=== PATIENT | male | born 1950 | race Caucasian/White ===

== ENCOUNTER → 2018-02-15 | Outpatient (CLI) | payer MEDICARE, OTHER ==
[~2018-02-15] MED LIST: ASPIRIN E.C. 8181 MG PO; CRESTOR 10MG10 MG PO; GLUCOPHAGE XR500 M1 PO; JANUVIA 100MG100 MG PO; LOPRESSOR100 MG PO; MULTIPLE VITAMI1 CAP PO; PRINZIDE 12.5 M1 TA1 PO
== END ==
LOC: COL.VAS 12:15
DX: M79.89 Other specified soft tissue disorders (principal)

== ENCOUNTER → 2019-04-09 | Outpatient (CLI) | payer MEDICARE, OTHER | LOC: COL.VAS 04-07 12:45 | DX: R01.1 Cardiac murmur, unspecified (principal) ==

== ENCOUNTER 2020-04-06 07:00 | Day surgery (SDC) | payer MEDICARE, OTHER ==
[2020-04-06] VITALS (223 sets, daily range): BP systolic 131–177; BP diastolic 67–85; PULSE 60–81; TEMP 97.2–98; O2SAT 93–98
[~2020-04-06] VITALS: Ht 167.7 cm; Wt 131.6 kg
[~2020-04-06 07:00] MED LIST changes: +COMPLETE SENIOR1 TA1 PO; -MULTIPLE VITAMI1 CAP PO; +PRINIVIL20 MG PO; -PRINZIDE 12.5 M1 TA1 PO
[2020-04-06 08:00] LABS: HEMATOCRIT 47.8 % (42.0-52.0); MEAN CELL VOLUME 93 fl (80.0-100.0); MEAN CORPUSCULAR HEMOGLOBIN 31 pg (27.0-31.0); MEAN CORPUSCULAR HGB CONC 34 g/dl (33.0-37.0); MEAN PLATELET VOLUME 10.8 fl (7.4-10.4); PLATELET COUNT 151 K/mm3 (130-400); RED BLOOD COUNT 5.12 M/mm3 (4.20-5.60); REDCELL DISTRIBUTION WIDTH-CV 12.5 % (11.5-14.5)
[2020-04-06 08:03] LABS: PROTHROMBIN TIME 11.7 SECONDS (9.7-12.8)
[2020-04-06 08:09] LABS: CALCIUM 9.2 mg/dL (8.4-10.2); CREATININE, serum 1.02 (0.66-1.25); POTASSIUM 4.5 mmol/L (3.4-5.0)
[2020-04-06] MEDS ORDERED: TRESIBA FL200 UNIT/1 SQ (08:28)
[2020-04-06] MEDS ORDERED: JARDIANCE25 PO (08:29)
[2020-04-06] MEDS ORDERED: GAVISCON 80 MG-1 CT1 PO (08:30)
--- NOTE | 2020-04-06 09:16 | NUR ---
SEE MERGE FOR ALL MEDICATION ADMINISTRATION TIMES AND ANESTHESIA RECORD. SEE MERGE FOR INTRA AND POST SEDATION ASSESSMENTS
--- NOTE | 2020-04-06 10:45 | NUR ---
Patient arrives to ICU 3 at this time. right radial TR band in place with 13 cc air. VS WNL, nitro gtt infusing at 5 mcg/min.
--- NOTE | 2020-04-06 10:48 | NUR ---
Report received pt transferred to ICU #3.
--- NOTE | 2020-04-06 13:30 | NUR ---
Dr. Mix comes to room at this time to inform patient of transfer to [facility] in [place] for PCI. Jen, warehouse shipping receiving clerk aware of transfer, awaiting bed assignment.
--- NOTE | 2020-04-06 15:04 | NUR ---
Patient leaves for [facility] in [place] with [facility] at this time. Report called to nurse on 7th floor.
== END 2020-04-06 15:18 | disposition short-term general hospital (02) ==
LOC: COL.CAR 07:00 → ICU 11:12 → COL.CAR 15:18
PROVIDERS: Internal Medicine Cardiovascular Disease
DX: I25.10 Atherosclerotic heart disease of native coronary artery without angina pectoris (principal); I08.0 Rheumatic disorders of both mitral and aortic valves; E78.2 Mixed hyperlipidemia; E11.9 Type 2 diabetes mellitus without complications; I10 Essential (primary) hypertension; E66.01 Morbid (severe) obesity due to excess calories; Z79.82 Long term (current) use of aspirin; Z79.84 Long term (current) use of oral hypoglycemic drugs
CPT/HCPCS: J1644; J2250; J2704; J3010; Q9967

== ENCOUNTER 2020-05-17 13:59 | Outpatient (RCR) | payer MEDICARE, OTHER ==
[~2020-05-17 13:59] MED LIST changes: +GAVISCON 80 MG-1 CT1 PO; +JARDIANCE25 PO; +TRESIBA FL200 UNIT/1 SQ
[2020-10-02] MEDS ORDERED: COREG 6.256.25 MG/TA PO (22:38)
[2020-10-02] MEDS ORDERED: PROTONIX 40MG T40 MG PO (22:38)
[2020-10-02] MEDS ORDERED: CORDARONE200 MG/TAB PO (22:51)
[2020-10-02] MEDS ORDERED: PLAVIX 75MG TAB75 MG PO (22:51)
[2020-10-02] MEDS ORDERED: JARDIANCE25 PO (22:51)
[2020-10-02] MEDS ORDERED: LASIX 40MG TABL40 MG PO (22:52)
[2020-10-02] MEDS ORDERED: HUMALOG PEN100 U/ML SQ (22:52)
[2020-10-02] MEDS ORDERED: PROSCAR 5MG5 MG PO (22:52)
[2020-10-02] MEDS ORDERED: CRESTOR40 MG PO (22:53)
[2020-10-02] MEDS ORDERED: MIRALAX PA17 GM/Dose PO (22:53)
[2020-10-02] MEDS ORDERED: SENOKOT S 50 MG1 TAB PO (22:54)
[2020-10-02] MEDS ORDERED: TRESIBA FL200 UNIT/1 SQ (22:54)
[2020-10-03] MEDS ORDERED: COZAAR 25MG25 MG/TAB PO (00:56)
[2020-10-08] MEDS ORDERED: DIFLUCAN 100MG100 MG PO (16:14)
[2020-10-08] MEDS ORDERED: OMNICEF 300MG300 MG PO (16:16)
[2020-10-08] MEDS ORDERED: COREG 3.123.125 MG/T PO (16:18)
== END 2020-07-15 | disposition home or self-care (01) ==
LOC: COL.CR
DX: Z48.812 Encounter for surgical aftercare following surgery on the circulatory system (principal); Z95.5 Presence of coronary angioplasty implant and graft

== ENCOUNTER → 2020-08-03 | Outpatient (CLI) | payer MEDICARE, OTHER ==
[~2020-08-03] MED LIST changes: +BRILINTA90 MG PO; +CORDARONE200 MG/TAB PO; +COREG 25MG25 MG/TAB PO; +COREG 3.123.125 MG/T PO; +COREG 6.256.25 MG/TA PO; +COZAAR 25MG25 MG/TAB PO; +CRESTOR40 MG PO; +DIFLUCAN 100MG100 MG PO; +ERAXIS100 MG IV; +HUMALOG PEN100 U/ML SQ; +JARDIANCE25; +LASIX 20MG TABL20 MG PO; +LASIX 40MG TABL40 MG PO; +LIPITOR 80MG80 MG PO; +MIRALAX PA17 GM/Dose PO; +NITROSTAT0.4 MG/TAB SL; +OMNICEF 300MG300 MG PO; +PLAVIX 75MG TAB75 MG PO; +PROSCAR 5MG5 MG PO; +PROTONIX 40MG T40 MG PO; +RANEXA 500MG T500 MG PO; +SENOKOT S 50 MG1 TAB PO
== END ==
LOC: COL.RAD 09:39
DX: R07.89 Other chest pain (principal)
CPT/HCPCS: A9503

== ENCOUNTER → 2020-08-13 | Outpatient (CLI) | payer MEDICARE, OTHER ==
[2020-08-13 14:57] LABS: CALCIUM 9.4 mg/dL (8.4-10.2); CREATININE, serum 0.96 (0.66-1.25); POTASSIUM 4.7 mmol/L (3.4-5.0)
== END ==
LOC: ZCOL.LAB 10:19
PROVIDERS: Family Medicine
DX: H05.89 Other disorders of orbit (principal)

== ENCOUNTER 2020-09-03 06:54 | Day surgery (SDC) | payer MEDICARE, OTHER ==
[~2020-09-03] VITALS: Ht 167.6 cm; Wt 126.9 kg
[~2020-09-03 06:54] MED LIST changes: -BRILINTA90 MG PO; -CORDARONE200 MG/TAB PO; -COREG 25MG25 MG/TAB PO; -COREG 3.123.125 MG/T PO; -COREG 6.256.25 MG/TA PO; -COZAAR 25MG25 MG/TAB PO; -CRESTOR40 MG PO; -DIFLUCAN 100MG100 MG PO; -ERAXIS100 MG IV; -HUMALOG PEN100 U/ML SQ; -JARDIANCE25; -LASIX 20MG TABL20 MG PO; -LASIX 40MG TABL40 MG PO; -LIPITOR 80MG80 MG PO; -MIRALAX PA17 GM/Dose PO; -NITROSTAT0.4 MG/TAB SL; -OMNICEF 300MG300 MG PO; -PLAVIX 75MG TAB75 MG PO; -PROSCAR 5MG5 MG PO; -PROTONIX 40MG T40 MG PO; -RANEXA 500MG T500 MG PO; -SENOKOT S 50 MG1 TAB PO
[2020-09-03] MEDS ORDERED: JARDIANCE25 (07:49)
[2020-09-03] MEDS ORDERED: PROTONIX 40MG T40 MG PO (07:50)
[2020-09-03] MEDS ORDERED: COREG 25MG25 MG/TAB PO (07:51)
[2020-09-03] MEDS ORDERED: BRILINTA90 MG PO (07:51)
[2020-09-03] MEDS ORDERED: LIPITOR 80MG80 MG PO (07:52)
[2020-09-03] MEDS ORDERED: NITROSTAT0.4 MG/TAB SL (07:53)
[2020-09-03 07:56] VITALS: BP 95/49; PULSE 72; TEMP 96.4
[2020-09-03 09:00] VITALS: BP 116/59; PULSE 71; TEMP 97.6
--- NOTE | 2020-09-03 09:00 | NUR ---
PATIENT RETURNS FROM ENDO PROCEDURE VIA CART. PATIENT AMBULATED FROM CART TO RECLINER WITH RN ASSISTANCE. MONITORS ON AND ALARMS SET. CALL LIGHT WITHIN REACH. FAMILY MEMBER PROESENT IN ROOM. PATIENT ALERT AND ORIENTED X3, REPORT RECEIVED FROM JODI LOMBARDO. HOLDING FOOD AND FLUIDS UNTIL PATIENT IS SEEN BY DR HOLLINGSWORTH. DENIES NAUSEA. CHEST DISCOMFORT NOTED BUT LESS THAN BEFORE MORPHINE. BLOOD SUGAR 143 FINGER STICK.
[2020-09-03 09:15] VITALS: BP 113/48; PULSE 74
--- NOTE | 2020-09-03 09:15 | NUR ---
DR HOLLINGSWORTH EXPLAINED PROCEDURE AND PLAN OF CARE, PATIENT VOICED UNDERSTANDING OF PLAN OF CARE, DENIES CHEST PAIN. SPOUSE REMAINS IN THE ROOM, CAPSULE SWALLOW PLANNED WILL PATIENT IS HERE.
[2020-09-03 09:30] VITALS: BP 128/60; PULSE 70
--- NOTE | 2020-09-03 10:30 | NUR ---
DISCHARGE INSTRUCTIONS REVIEWED AND QUESTIONS ANSWERED, NPO UNTIL NOON THAN CLEAR LIQUIDS, 4 HOURS MAY EAT REGULAR DIET, MONITOR ON TO RECORD GI CAPSULE. TAKEN BY WHEELCHAIR TO CAR ACCOMPANIED BY SPOUSE.
[2020-10-02] MEDS ORDERED: PROTONIX 40MG T40 MG PO (22:38)
[2020-10-02] MEDS ORDERED: COREG 6.256.25 MG/TA PO (22:38)
[2020-10-02] MEDS ORDERED: JARDIANCE25 PO (22:51)
[2020-10-02] MEDS ORDERED: PLAVIX 75MG TAB75 MG PO (22:51)
[2020-10-02] MEDS ORDERED: CORDARONE200 MG/TAB PO (22:51)
[2020-10-02] MEDS ORDERED: LASIX 40MG TABL40 MG PO (22:52)
[2020-10-02] MEDS ORDERED: HUMALOG PEN100 U/ML SQ (22:52)
[2020-10-02] MEDS ORDERED: PROSCAR 5MG5 MG PO (22:52)
[2020-10-02] MEDS ORDERED: CRESTOR40 MG PO (22:53)
[2020-10-02] MEDS ORDERED: MIRALAX PA17 GM/Dose PO (22:53)
[2020-10-02] MEDS ORDERED: SENOKOT S 50 MG1 TAB PO (22:54)
[2020-10-02] MEDS ORDERED: TRESIBA FL200 UNIT/1 SQ (22:54)
[2020-10-03] MEDS ORDERED: COZAAR 25MG25 MG/TAB PO (00:56)
[2020-10-08] MEDS ORDERED: DIFLUCAN 100MG100 MG PO (16:14)
[2020-10-08] MEDS ORDERED: OMNICEF 300MG300 MG PO (16:16)
[2020-10-08] MEDS ORDERED: COREG 3.123.125 MG/T PO (16:18)
== END 2020-09-03 10:30 | disposition home or self-care (01) ==
LOC: SDCO 06:54
DX: D50.0 Iron deficiency anemia secondary to blood loss (chronic) (principal); K31.89 Other diseases of stomach and duodenum; K92.1 Melena; D12.2 Benign neoplasm of ascending colon; K57.30 Diverticulosis of large intestine without perforation or abscess without bleeding; E11.9 Type 2 diabetes mellitus without complications; K64.1 Second degree hemorrhoids; I10 Essential (primary) hypertension; E78.2 Mixed hyperlipidemia; E66.01 Morbid (severe) obesity due to excess calories; I25.10 Atherosclerotic heart disease of native coronary artery without angina pectoris; Z79.899 Other long term (current) drug therapy; Z79.4 Long term (current) use of insulin; Z95.2 Presence of prosthetic heart valve; Z79.02 Long term (current) use of antithrombotics/antiplatelets; Z79.82 Long term (current) use of aspirin; Z68.41 Body mass index [BMI] 40.0-44.9, adult; Z95.818 Presence of other cardiac implants and grafts
CPT/HCPCS: J2270; J2370; J2704

== ENCOUNTER 2020-09-07 04:00 | Emergency (ER) | payer MEDICARE, OTHER ==
[~2020-09-07] VITALS: Ht 170.2 cm; Wt 127.3 kg
[~2020-09-07 04:00] MED LIST changes: +BRILINTA90 MG PO; +COREG 25MG25 MG/TAB PO; +JARDIANCE25; +LIPITOR 80MG80 MG PO; +NITROSTAT0.4 MG/TAB SL; +PROTONIX 40MG T40 MG PO
[2020-09-07 04:23] LABS: BASO % 0.3 % (0.0-2.0); EOS # 0.1 (0.0-0.7); EOS % 1.4 % (0-4.0); GRAN # 6.8 (1.4-6.5); GRAN % 76.8 % (42.2-75.2); LYMPH # 1.2 (1.2-3.4); LYMPH % 13.4 % (20.0-51.0); MEAN CELL VOLUME 98 fl (80.0-100.0); MEAN CORPUSCULAR HGB CONC 32 g/dl (33.0-37.0); MEAN PLATELET VOLUME 10.4 fl (7.4-10.4); MONO # 0.6 (0.1-0.6); MONO % 7.2 % (1.7-9.3); PLATELET COUNT 189 K/mm3 (130-400); RED BLOOD COUNT 2.53 M/mm3 (4.20-5.60); REDCELL DISTRIBUTION WIDTH-CV 14.6 % (11.5-14.5)
[2020-09-07 04:24] LABS: HEMATOCRIT 24.8 % (42.0-52.0); HEMOGLOBIN 7.9 g/dl (13.5-18.0); MEAN CORPUSCULAR HEMOGLOBIN 31 pg (27.0-31.0)
[2020-09-07 04:25] LABS: INR 1.1 (0.8-3.0); PROTHROMBIN TIME 12.4 SECONDS (9.7-12.8)
[2020-09-07 04:29] LABS: ALBUMIN 3.2 gm/dL (3.5-5.0); BILIRUBIN,TOTAL 0.5 mg/dL (0.0-1.0); CALCIUM 8.9 mg/dL (8.4-10.2); CREATININE, serum 1.26 (0.66-1.25); POTASSIUM 4.6 mmol/L (3.4-5.0); TOTAL PROTEIN 5.7 gm/dL (6.4-8.2)
[2020-09-07 04:42] LABS: TROPONIN-I 0.584 ng/mL (0.000-0.035)
[2020-09-07 05:30] VITALS: BP 108/56; PULSE 63; TEMP 97.7
[2020-09-07 06:00] VITALS: BP 113/63; PULSE 74; TEMP 97.4
[2020-09-07 06:48] VITALS: BP 147/87; PULSE 87; TEMP 97.5
[2020-09-07 07:25] VITALS: BP 148/82; PULSE 87; TEMP 97.4
[2020-09-07 10:15] VITALS: BP 97/63; PULSE 89
[2020-10-02] MEDS ORDERED: PROTONIX 40MG T40 MG PO (22:38)
[2020-10-02] MEDS ORDERED: COREG 6.256.25 MG/TA PO (22:38)
[2020-10-02] MEDS ORDERED: CORDARONE200 MG/TAB PO (22:51)
[2020-10-02] MEDS ORDERED: PLAVIX 75MG TAB75 MG PO (22:51)
[2020-10-02] MEDS ORDERED: JARDIANCE25 PO (22:51)
[2020-10-02] MEDS ORDERED: PROSCAR 5MG5 MG PO (22:52)
[2020-10-02] MEDS ORDERED: LASIX 40MG TABL40 MG PO (22:52)
[2020-10-02] MEDS ORDERED: HUMALOG PEN100 U/ML SQ (22:52)
[2020-10-02] MEDS ORDERED: MIRALAX PA17 GM/Dose PO (22:53)
[2020-10-02] MEDS ORDERED: CRESTOR40 MG PO (22:53)
[2020-10-02] MEDS ORDERED: SENOKOT S 50 MG1 TAB PO (22:54)
[2020-10-02] MEDS ORDERED: TRESIBA FL200 UNIT/1 SQ (22:54)
[2020-10-03] MEDS ORDERED: COZAAR 25MG25 MG/TAB PO (00:56)
[2020-10-08] MEDS ORDERED: DIFLUCAN 100MG100 MG PO (16:14)
[2020-10-08] MEDS ORDERED: OMNICEF 300MG300 MG PO (16:16)
[2020-10-08] MEDS ORDERED: COREG 3.123.125 MG/T PO (16:18)
== END 2020-09-07 10:15 | disposition short-term general hospital (02) ==
LOC: COL.ER 04:00
PROVIDERS: Personal Emergency Response Attendant
DX: Q23.1 Congenital insufficiency of aortic valve (principal); I25.700 Atherosclerosis of coronary artery bypass graft(s), unspecified, with unstable angina pectoris; K92.2 Gastrointestinal hemorrhage, unspecified; E11.9 Type 2 diabetes mellitus without complications; Z95.1 Presence of aortocoronary bypass graft
CPT/HCPCS: C9113; J1940; J2405; J2704; J3010; P9016

== ENCOUNTER 2020-09-19 20:38 | Emergency (ER) | payer MEDICARE, OTHER ==
[~2020-09-19] VITALS: Ht 170.2 cm; Wt 119.5 kg
[2020-09-19 20:40] VITALS: TEMP 99.3
[2020-09-19 21:07] LABS: INR 1.4 (0.8-3.0); PROTHROMBIN TIME 15.7 SECONDS (9.7-12.8)
[2020-09-19 21:11] LABS: BASO % 0.3 % (0.0-2.0); GRAN # 7.5 (1.4-6.5); GRAN % 94.3 % (42.2-75.2); LYMPH # 0.2 (1.2-3.4); LYMPH % 2.5 % (20.0-51.0); MEAN CELL VOLUME 96 fl (80.0-100.0); MEAN CORPUSCULAR HGB CONC 30 g/dl (33.0-37.0); MONO # 0.1 (0.1-0.6); MONO % 1.5 % (1.7-9.3); PLATELET COUNT 184 K/mm3 (130-400); RED BLOOD COUNT 2.69 M/mm3 (4.20-5.60); REDCELL DISTRIBUTION WIDTH-CV 16.1 % (11.5-14.5)
[2020-09-19 21:12] LABS: HEMATOCRIT 25.7 % (42.0-52.0); HEMOGLOBIN 7.7 g/dl (13.5-18.0); MEAN CORPUSCULAR HEMOGLOBIN 29 pg (27.0-31.0)
[2020-09-19 21:13] LABS: BILIRUBIN,TOTAL 1.5 mg/dL (0.0-1.0); CALCIUM 8.2 mg/dL (8.4-10.2); CREATININE, serum 3.08 (0.66-1.25); POTASSIUM 4.7 mmol/L (3.4-5.0); TOTAL PROTEIN 5.9 gm/dL (6.4-8.2)
[2020-09-19 21:29] LABS: TROPONIN-I 0.659 ng/mL (0.000-0.035)
[2020-09-19 22:42] LABS: COLLECTION METHOD CLEAN CATCH
[2020-09-19 23:02] LABS: BUDDING YEAST Present /hpf; MUCOUS Present /lpf; PH 5 (5-8); SQUAMOUS EPITHELIAL 0-2 /hpf; URINE APPEARANCE Cloudy; URINE BACTERIA None Seen /hpf; URINE BILIRUBIN Negative (NEGATIVE); URINE BLOOD 1+ (NEGATIVE); URINE COLOR Yellow; URINE GLUCOSE 3+ (NEGATIVE); URINE KETONE Negative (NEGATIVE); URINE LEUKOCYTE ESTERASE Negative (NEGATIVE); URINE NITRATE Negative (NEGATIVE); URINE PROTEIN(semi-quant) Negative (NEGATIVE); URINE RBC 0-2 /hpf; URINE UROBILINOGEN Negative (NEGATIVE)
[2020-09-19 23:15] VITALS: BP 115/51; PULSE 68
[2020-10-02] MEDS ORDERED: COREG 6.256.25 MG/TA PO (22:38)
[2020-10-02] MEDS ORDERED: PROTONIX 40MG T40 MG PO (22:38)
[2020-10-02] MEDS ORDERED: PLAVIX 75MG TAB75 MG PO (22:51)
[2020-10-02] MEDS ORDERED: JARDIANCE25 PO (22:51)
[2020-10-02] MEDS ORDERED: CORDARONE200 MG/TAB PO (22:51)
[2020-10-02] MEDS ORDERED: LASIX 40MG TABL40 MG PO (22:52)
[2020-10-02] MEDS ORDERED: HUMALOG PEN100 U/ML SQ (22:52)
[2020-10-02] MEDS ORDERED: PROSCAR 5MG5 MG PO (22:52)
[2020-10-02] MEDS ORDERED: MIRALAX PA17 GM/Dose PO (22:53)
[2020-10-02] MEDS ORDERED: CRESTOR40 MG PO (22:53)
[2020-10-02] MEDS ORDERED: SENOKOT S 50 MG1 TAB PO (22:54)
[2020-10-02] MEDS ORDERED: TRESIBA FL200 UNIT/1 SQ (22:54)
[2020-10-03] MEDS ORDERED: COZAAR 25MG25 MG/TAB PO (00:56)
[2020-10-08] MEDS ORDERED: DIFLUCAN 100MG100 MG PO (16:14)
[2020-10-08] MEDS ORDERED: OMNICEF 300MG300 MG PO (16:16)
[2020-10-08] MEDS ORDERED: COREG 3.123.125 MG/T PO (16:18)
== END 2020-09-19 23:15 ==
LOC: COL.ER 20:38
PROVIDERS: Emergency Medicine
DX: K92.2 Gastrointestinal hemorrhage, unspecified (principal); I20.0 Unstable angina; Z95.1 Presence of aortocoronary bypass graft; I35.0 Nonrheumatic aortic (valve) stenosis; E11.9 Type 2 diabetes mellitus without complications; Z79.82 Long term (current) use of aspirin; Z79.899 Other long term (current) drug therapy; Z79.4 Long term (current) use of insulin
CPT/HCPCS: J7030; J7060

== ENCOUNTER 2020-10-01 17:00 | Emergency (ER) | payer MEDICARE, OTHER ==
[~2020-10-01] VITALS: Ht 170.2 cm; Wt 119.1 kg
[2020-10-01 18:25] VITALS: BP 116/52; PULSE 63; TEMP 98
[2020-10-02] MEDS ORDERED: PROTONIX 40MG T40 MG PO (22:38)
[2020-10-02] MEDS ORDERED: COREG 6.256.25 MG/TA PO (22:38)
[2020-10-02] MEDS ORDERED: PLAVIX 75MG TAB75 MG PO (22:51)
[2020-10-02] MEDS ORDERED: JARDIANCE25 PO (22:51)
[2020-10-02] MEDS ORDERED: CORDARONE200 MG/TAB PO (22:51)
[2020-10-02] MEDS ORDERED: PROSCAR 5MG5 MG PO (22:52)
[2020-10-02] MEDS ORDERED: HUMALOG PEN100 U/ML SQ (22:52)
[2020-10-02] MEDS ORDERED: LASIX 40MG TABL40 MG PO (22:52)
[2020-10-02] MEDS ORDERED: MIRALAX PA17 GM/Dose PO (22:53)
[2020-10-02] MEDS ORDERED: CRESTOR40 MG PO (22:53)
[2020-10-02] MEDS ORDERED: TRESIBA FL200 UNIT/1 SQ (22:54)
[2020-10-02] MEDS ORDERED: SENOKOT S 50 MG1 TAB PO (22:54)
[2020-10-03] MEDS ORDERED: COZAAR 25MG25 MG/TAB PO (00:56)
[2020-10-08] MEDS ORDERED: DIFLUCAN 100MG100 MG PO (16:14)
[2020-10-08] MEDS ORDERED: OMNICEF 300MG300 MG PO (16:16)
[2020-10-08] MEDS ORDERED: COREG 3.123.125 MG/T PO (16:18)
== END 2020-10-01 18:25 | disposition home or self-care (01) ==
LOC: COL.ER 17:00
DX: R04.0 Epistaxis (principal); I25.2 Old myocardial infarction; Z79.01 Long term (current) use of anticoagulants; Z79.82 Long term (current) use of aspirin; Z79.02 Long term (current) use of antithrombotics/antiplatelets; Z95.1 Presence of aortocoronary bypass graft

== ENCOUNTER 2020-10-15 17:51 | Emergency (ER) | payer MEDICARE, OTHER ==
[~2020-10-15] VITALS: Ht 170.2 cm; Wt 122.3 kg
[~2020-10-15 17:51] MED LIST changes: +CORDARONE200 MG/TAB PO; +COREG 3.123.125 MG/T PO; +COREG 6.256.25 MG/TA PO; +COZAAR 25MG25 MG/TAB PO; +CRESTOR40 MG PO; +DIFLUCAN 100MG100 MG PO; +HUMALOG PEN100 U/ML SQ; +LASIX 40MG TABL40 MG PO; +MIRALAX PA17 GM/Dose PO; +OMNICEF 300MG300 MG PO; +PLAVIX 75MG TAB75 MG PO; +PROSCAR 5MG5 MG PO; +SENOKOT S 50 MG1 TAB PO
[2020-10-15 18:02] VITALS: TEMP 98
[2020-10-15 19:18] LABS: BASO % 0.6 % (0.0-2.0); EOS # 0.1 (0.0-0.7); GRAN # 4.3 (1.4-6.5); GRAN % 64.4 % (42.2-75.2); LYMPH # 1.7 (1.2-3.4); LYMPH % 25.3 % (20.0-51.0); MEAN CELL VOLUME 96 fl (80.0-100.0); MEAN CORPUSCULAR HGB CONC 30 g/dl (33.0-37.0); MEAN PLATELET VOLUME 9.2 fl (7.4-10.4); MONO # 0.5 (0.1-0.6); MONO % 7.1 % (1.7-9.3); PLATELET COUNT 313 K/mm3 (130-400); RED BLOOD COUNT 3.01 M/mm3 (4.20-5.60); REDCELL DISTRIBUTION WIDTH-CV 17.3 % (11.5-14.5)
[2020-10-15 19:19] LABS: HEMATOCRIT 28.8 % (42.0-52.0); HEMOGLOBIN 8.5 g/dl (13.5-18.0); MEAN CORPUSCULAR HEMOGLOBIN 28 pg (27.0-31.0)
[2020-10-15 19:29] LABS: ALBUMIN 3.5 gm/dL (3.5-5.0); BILIRUBIN,TOTAL 0.5 mg/dL (0.0-1.0); CALCIUM 8.8 mg/dL (8.4-10.2); CREATININE, serum 1.66 (0.66-1.25); POTASSIUM 3.7 mmol/L (3.4-5.0); TOTAL PROTEIN 7.1 gm/dL (6.4-8.2)
[2020-10-15 19:54] VITALS: BP 160/89; PULSE 71
== END 2020-10-15 19:50 | disposition home or self-care (01) ==
LOC: COL.ER 17:51
PROVIDERS: Physician Assistant
DX: D64.9 Anemia, unspecified (principal); I25.2 Old myocardial infarction; Z79.01 Long term (current) use of anticoagulants

== ENCOUNTER → 2020-10-18 | Outpatient (CLI) | payer MEDICARE, OTHER ==
[~2020-10-18] MED LIST changes: +ERAXIS100 MG IV; +LASIX 20MG TABL20 MG PO; +RANEXA 500MG T500 MG PO
[2020-10-18 08:58] LABS: MEAN CELL VOLUME 95 fl (80.0-100.0); MEAN CORPUSCULAR HGB CONC 30 g/dl (33.0-37.0); MEAN PLATELET VOLUME 9.1 fl (7.4-10.4); PLATELET COUNT 293 K/mm3 (130-400); RED BLOOD COUNT 2.92 M/mm3 (4.20-5.60)
[2020-10-18 09:01] LABS: HEMATOCRIT 27.6 % (42.0-52.0); HEMOGLOBIN 8.3 g/dl (13.5-18.0); MEAN CORPUSCULAR HEMOGLOBIN 28 pg (27.0-31.0)
== END ==
LOC: COL.LAB 08:22
DX: D64.9 Anemia, unspecified (principal)

== ENCOUNTER → 2020-10-22 | Outpatient (CLI) | payer MEDICARE, OTHER ==
[2020-10-22 10:40] LABS: HEMATOCRIT 26.6 % (42.0-52.0); HEMOGLOBIN 8.2 g/dl (13.5-18.0)
== END ==
LOC: COL.LAB 10:03
PROVIDERS: Nurse Practitioner
DX: D64.9 Anemia, unspecified (principal)

== ENCOUNTER → 2020-11-11 | Outpatient (CLI) | payer MEDICARE, OTHER ==
[2020-11-11 09:53] LABS: IRON,SERUM 50 ug/dL (35-150)
[2020-11-11 09:55] LABS: MEAN CELL VOLUME 86 fl (80.0-100.0); MEAN CORPUSCULAR HGB CONC 32 g/dl (33.0-37.0); MEAN PLATELET VOLUME 10.9 fl (7.4-10.4); PLATELET COUNT 154 K/mm3 (130-400); RED BLOOD COUNT 3.28 M/mm3 (4.20-5.60); REDCELL DISTRIBUTION WIDTH-CV 15.3 % (11.5-14.5)
[2020-11-11 10:02] LABS: TOTAL IRON BINDING CAPACITY 398 ug/dL (261-462)
[2020-11-11 11:59] LABS: HEMATOCRIT 28.3 % (42.0-52.0); HEMOGLOBIN 9.1 g/dl (13.5-18.0); MEAN CORPUSCULAR HEMOGLOBIN 28 pg (27.0-31.0)
[2020-11-11 12:04] LABS: ANISOCYTOSIS 1+; EOSINOPHIL 3 % (0-4); LYMPHOCYTE 20 % (20.0-51.0); PLATELET ESTIMATE NORMAL (NORMAL)
[2020-11-11 12:05] LABS: BAND 4 % (0-10); NEUTROPHILS 63 % (42.0-75.2)
[2020-11-11 12:06] LABS: HYPOCHROMIA 1+
== END ==
LOC: COL.LAB 09:00
PROVIDERS: Nurse Practitioner
DX: D64.9 Anemia, unspecified (principal)

== ENCOUNTER 2020-12-01 06:43 | Inpatient (IN) | payer MEDICARE, OTHER ==
[~2020-12-01] VITALS: Ht 170.2 cm; Wt 119.6 kg
[2020-12-01] VITALS (10 sets, daily range): BP systolic 102–153; BP diastolic 36–89; PULSE 79–105; TEMP 98.1–99.2
[~2020-12-01 06:43] MED LIST changes: -ERAXIS100 MG IV; -LASIX 20MG TABL20 MG PO; -RANEXA 500MG T500 MG PO
[2020-12-01 07:08] LABS: BASO % 0.4 % (0.0-2.0); EOS % 0.7 % (0-4.0); GRAN # 4.6 (1.4-6.5); GRAN % 85.2 % (42.2-75.2); LYMPH # 0.4 (1.2-3.4); LYMPH % 7.4 % (20.0-51.0); MEAN CELL VOLUME 84 fl (80.0-100.0); MEAN CORPUSCULAR HGB CONC 30 g/dl (33.0-37.0); MEAN PLATELET VOLUME 10.1 fl (7.4-10.4); MONO # 0.3 (0.1-0.6); MONO % 5.9 % (1.7-9.3); PLATELET COUNT 210 K/mm3 (130-400); RED BLOOD COUNT 3.26 M/mm3 (4.20-5.60); REDCELL DISTRIBUTION WIDTH-CV 15.1 % (11.5-14.5)
[2020-12-01 07:18] LABS: INR 1.2 (0.8-3.0); PROTHROMBIN TIME 13.4 SECONDS (9.7-12.8)
[2020-12-01 07:21] LABS: PARTIAL THROMBOPLASTIN TIME 23.9 SECONDS (26.0-37.0)
[2020-12-01 07:28] LABS: ALBUMIN 3.1 gm/dL (3.4-4.8); BILIRUBIN,TOTAL 0.7 mg/dL (0.2-1.2); CALCIUM 8.9 mg/dL (8.4-10.2); CREATININE, serum 1.49 mg/dL (0.72-1.25); POTASSIUM 4.4 mmol/L (3.5-4.5)
[2020-12-01 07:34] LABS: TROPONIN-I 0.017 ng/mL (0.00-0.033)
[2020-12-01 08:04] LABS: HEMATOCRIT 27.4 % (42.0-52.0); HEMOGLOBIN 8.3 g/dl (13.5-18.0); MEAN CORPUSCULAR HEMOGLOBIN 25 pg (27.0-31.0)
--- NOTE | 2020-12-01 13:59 | NUR ---
PT ADMITTED TO ROOM 314 VIA CART ACCOMPANIED BY ER NURSE. PT ORIENTED TO ROON AND UNIT ROUTINES.
[2020-12-01] MEDS ORDERED: LASIX 20MG TABL20 MG PO ×2 (16:24→16:25)
[2020-12-01 17:37] LABS: COLLECTION METHOD CLEAN CATCH
[2020-12-01 18:09] LABS: BUDDING YEAST Present /hpf; PH 5 (5-8); SQUAMOUS EPITHELIAL None Seen /hpf; URINE APPEARANCE Hazy; URINE BACTERIA None Seen /hpf; URINE BILIRUBIN Negative (NEGATIVE); URINE BLOOD 1+ (NEGATIVE); URINE COLOR Yellow; URINE GLUCOSE 3+ (NEGATIVE); URINE KETONE Negative (NEGATIVE); URINE LEUKOCYTE ESTERASE Trace (NEGATIVE); URINE NITRATE Negative (NEGATIVE); URINE PROTEIN(semi-quant) 1+ (NEGATIVE); URINE UROBILINOGEN Negative (NEGATIVE)
--- NOTE | 2020-12-01 20:00 | NUR ---
Assessment complete. Patient is alert and oriented with no current complaints of chest pain. Lung sounds are clear and HR is normal/regular. Patient breathing RA. 1 unit blood currently infusing into left hand IV; patient tolerating trasnfusion well. No new concerns, will continue to monitor.
--- NOTE | 2020-12-01 21:45 | NUR ---
1 unit PRBC transfusion complete at this time. Patient tolerated procedure well with no s/s of adverse reaction. Vital signs stable.
[2020-12-02 00:13] VITALS: BP 137/55; PULSE 74; TEMP 98.3
[2020-12-02 03:59] VITALS: BP 129/59; PULSE 70; TEMP 98.1
--- NOTE | 2020-12-02 06:41 | NUR ---
Patient has had a restful, uneventful night. No complaints of chest pain or additional concerns. Has been NPO since midnight for heart cath today.
[2020-12-02 06:57] LABS: BASO % 0.9 % (0.0-2.0); EOS # 0.1 (0.0-0.7); GRAN # 1.9 (1.4-6.5); GRAN % 56.6 % (42.2-75.2); LYMPH # 0.9 (1.2-3.4); LYMPH % 27.1 % (20.0-51.0); MEAN CELL VOLUME 86 fl (80.0-100.0); MEAN CORPUSCULAR HGB CONC 30 g/dl (33.0-37.0); MONO # 0.4 (0.1-0.6); MONO % 12.8 % (1.7-9.3); PLATELET COUNT 201 K/mm3 (130-400); RED BLOOD COUNT 3.42 M/mm3 (4.20-5.60); REDCELL DISTRIBUTION WIDTH-CV 15.1 % (11.5-14.5)
[2020-12-02 06:59] LABS: HEMATOCRIT 29.3 % (42.0-52.0); HEMOGLOBIN 8.8 g/dl (13.5-18.0); MEAN CORPUSCULAR HEMOGLOBIN 26 pg (27.0-31.0)
[2020-12-02 07:28] LABS: CALCIUM 8.9 mg/dL (8.4-10.2); CREATININE, serum 1.34 mg/dL (0.72-1.25)
[2020-12-02 07:48] LABS: TROPONIN-I 0.21 ng/mL (0.00-0.033)
[2020-12-02 07:57] VITALS: BP 142/52; PULSE 77; TEMP 97.8
--- NOTE | 2020-12-02 09:12 | NUR ---
Patient laying in bed upon entering the room. Does not have any complaints this morning. Continues to refuse SQ heparin, as he has a hx of GI bleed. Patient stated he will only take it if he needs to have a cardiac cath done. Patient has been NPO since midnight, as night nurse was told he was to have a cardiac cath today. At this time there are no orders for one, and there are no notes stating that one would be completed.
[2020-12-02 11:44] VITALS: BP 127/58; PULSE 69; TEMP 98.1
--- NOTE | 2020-12-02 12:45 | NUR ---
HA met with patient and his , Matilda, to discuss discharge planning. Patient states he and his live in [place] where he is moderately independent. He does have a walker, shower chair, and their son is going to be installing a raised toilet seat. Their home only has one step to enter. Patient uses [facility] for his pharmacy needs and he has no difficulty obtaining or affording them. His PCP is Abner Coello and his is listed as his MPOA, which they state is on file. *D/C Planning: anticipated d/c home pending evals and testing
--- NOTE | 2020-12-02 13:40 | NUR ---
First visit from the brake operator heavy duty. No needs right now.
[2020-12-02 16:39] VITALS: BP 116/48; PULSE 69; TEMP 98
--- NOTE | 2020-12-02 18:20 | NUR ---
Patient has done well today and has not had any complaints. has been in the room all day. All questions answered.
--- NOTE | 2020-12-02 20:00 | NUR ---
Assessment complete. Patient is alert and oriented with no complaints of chest pain. Pt home meds are verified with his and medication education is provided on newly prescribed med, Ranexa. HR is normal/regular and lungs are clear. BLE non-pitting edema is noted with venous stasus discoloration, which is chronic for the patient. Patient breathing RA. He has been informed of NPO status at midnight for possible SASKIA in AM. Call light in reach.
[2020-12-02 21:39] VITALS: BP 127/49; PULSE 72; TEMP 97.8
[2020-12-03 04:04] VITALS: BP 133/51; PULSE 78; TEMP 97.6
[2020-12-03 06:03] LABS: BASO % 0.7 % (0.0-2.0); EOS # 0.1 (0.0-0.7); EOS % 4.3 % (0-4.0); GRAN # 1.5 (1.4-6.5); GRAN % 49.7 % (42.2-75.2); LYMPH # 0.9 (1.2-3.4); LYMPH % 30.2 % (20.0-51.0); MEAN CELL VOLUME 85 fl (80.0-100.0); MEAN CORPUSCULAR HGB CONC 30 g/dl (33.0-37.0); MEAN PLATELET VOLUME 11.2 fl (7.4-10.4); MONO # 0.5 (0.1-0.6); MONO % 14.8 % (1.7-9.3); PLATELET COUNT 151 K/mm3 (130-400); RED BLOOD COUNT 3.41 M/mm3 (4.20-5.60); REDCELL DISTRIBUTION WIDTH-CV 15.3 % (11.5-14.5)
[2020-12-03 06:04] LABS: HEMOGLOBIN 8.7 g/dl (13.5-18.0); MEAN CORPUSCULAR HEMOGLOBIN 26 pg (27.0-31.0)
[2020-12-03 06:25] LABS: CALCIUM 9.1 mg/dL (8.4-10.2); CREATININE, serum 1.43 mg/dL (0.72-1.25); POTASSIUM 4.1 mmol/L (3.5-4.5)
[2020-12-03 07:52] VITALS: BP 136/67; PULSE 68; TEMP 97.7
--- NOTE | 2020-12-03 08:00 | NUR ---
Sanam RUSH notified of emeli growth in blood cultures. Infectious disease consult ordered and notified at this time.
--- NOTE | 2020-12-03 08:45 | NUR ---
Shift assessment complete. Pt sitting up in recliner. Updated on plan for today including SASKIA, awaiting scheduled time from . Pt remains NPO. Lungs CTA. Heart RRR. Afebrile, VSS. Denies needs at this time. Continuing to monitor.
[2020-12-03 11:30] VITALS: BP 149/59; PULSE 80; TEMP 97.8
--- NOTE | 2020-12-03 11:50 | NUR ---
Pt off unit for SASKIA at this time.
--- NOTE | 2020-12-03 13:00 | NUR ---
procedure completed and recovery, pt to 314 via w/c from . report to Kisha RN floor nurse, pt transfers self to bed, in room
[2020-12-03 14:20] VITALS: BP 132/53; PULSE 67; TEMP 97.8
[2020-12-03 16:20] VITALS: BP 133/49; PULSE 76; TEMP 98
--- NOTE | 2020-12-03 20:00 | NUR ---
Assessment complete. Patient alert and oriented with no complaints of pain. He expresses interest in being able to discharge tomorrow and receive outpatient antifungal treatment if possible. Comfort measures provided; call light within reach.
[2020-12-03 20:23] VITALS: BP 132/54; PULSE 74; TEMP 98
[2020-12-04 00:14] VITALS: BP 118/48; PULSE 71; TEMP 97.9
[2020-12-04 04:42] VITALS: BP 141/64; PULSE 72; TEMP 98.4
--- NOTE | 2020-12-04 06:59 | NUR ---
Bedside shift report complete. Report received from MUNIRA Cifuentes. Pt. sitting up in bed, awake. Pt. denies further needs at this time, call light and belongings in reach.
[2020-12-04 07:09] LABS: BASO % 0.8 % (0.0-2.0); EOS # 0.1 (0.0-0.7); EOS % 2.6 % (0-4.0); GRAN # 2.3 (1.4-6.5); GRAN % 59.6 % (42.2-75.2); LYMPH % 26.3 % (20.0-51.0); MEAN CELL VOLUME 86 fl (80.0-100.0); MEAN CORPUSCULAR HGB CONC 30 g/dl (33.0-37.0); MEAN PLATELET VOLUME 10.8 fl (7.4-10.4); MONO # 0.4 (0.1-0.6); MONO % 10.4 % (1.7-9.3); PLATELET COUNT 160 K/mm3 (130-400); RED BLOOD COUNT 3.51 M/mm3 (4.20-5.60); REDCELL DISTRIBUTION WIDTH-CV 15.5 % (11.5-14.5)
[2020-12-04 07:18] LABS: HEMOGLOBIN 9.1 g/dl (13.5-18.0); MEAN CORPUSCULAR HEMOGLOBIN 26 pg (27.0-31.0)
[2020-12-04 07:34] LABS: CALCIUM 9.2 mg/dL (8.4-10.2); CREATININE, serum 1.26 mg/dL (0.72-1.25)
[2020-12-04 08:42] VITALS: BP 146/60; PULSE 69; TEMP 98.1
[2020-12-04 11:50] VITALS: BP 131/47; PULSE 67; TEMP 98
[2020-12-04 15:38] VITALS: BP 133/50; PULSE 72; TEMP 98.2
--- NOTE | 2020-12-04 17:53 | NUR ---
Pt. continues to progress w/ plan of care. Pt. ambulated the unit today w/ his mask on. Pt. did not want to take subq heparin today because he has a history of GI bleeding. Pt. also did not want to wear SCDs. Dr. Gamez notified on the telephone and is aware. Pt. spoke on the phone w/ Dr. Mendoza today regarding his plan of care. Pt. is to stay in the hospital to receive IV infusions as well as further testing. Pt. reports he is disappointed he is unable to go home but agreeable with plan. Pt.'s has been at bedside a majority of the afternoon. Pt. went to get CT scan and is now back in his room. Pt. has been steady and independent in the room. Call light in reach.
[2020-12-04 20:54] VITALS: BP 129/47; PULSE 69; TEMP 98
--- NOTE | 2020-12-04 20:59 | NUR ---
Patient assessed around 2009. Alert and oriented x 4, and able to make needs known. Denies having pain and discomfort at this time. Peripheral INT to left and right wrist. LS CTA. Respirations even and unlabored. HRR. Telemetry in place: normal sinus. Voices no questions, needs, or concerns at this time. Resting in recliner with call light within reach.
[2020-12-05 00:44] VITALS: BP 139/55; PULSE 77; TEMP 97.9
[2020-12-05 03:54] VITALS: BP 145/61; PULSE 68; TEMP 97.9
--- NOTE | 2020-12-05 05:28 | NUR ---
Patient has been resting in bed with call light within reach. Has denied pain and discomfort. Has voiced no questions, needs, or concerns this shift.
--- NOTE | 2020-12-05 07:11 | NUR ---
Report received from MUNIRA Ang. Pt. OOB ambulating in room. Daily weight obtained. Pt. reports he ordered breakfast and denies further needs at this time. Call light and belongings in reach.
[2020-12-05 07:18] LABS: MEAN CELL VOLUME 86 fl (80.0-100.0); MEAN CORPUSCULAR HGB CONC 30 g/dl (33.0-37.0); MEAN PLATELET VOLUME 10.8 fl (7.4-10.4); PLATELET COUNT 175 K/mm3 (130-400); RED BLOOD COUNT 3.52 M/mm3 (4.20-5.60); REDCELL DISTRIBUTION WIDTH-CV 15.3 % (11.5-14.5)
[2020-12-05 07:20] LABS: HEMATOCRIT 30.3 % (42.0-52.0); MEAN CORPUSCULAR HEMOGLOBIN 26 pg (27.0-31.0)
[2020-12-05 07:43] LABS: CALCIUM 9.2 mg/dL (8.4-10.2)
[2020-12-05 08:28] VITALS: BP 139/55; PULSE 73; TEMP 98.4
[2020-12-05 09:10] LABS: CREATININE, serum 1.31 mg/dL (0.72-1.25)
[2020-12-05 12:00] VITALS: BP 140/60; PULSE 68; TEMP 98.2
[2020-12-05 16:27] VITALS: BP 126/55; PULSE 72; TEMP 98.3
--- NOTE | 2020-12-05 19:24 | NUR ---
Pt. had a good day today. Pt. has been ambulating the unit frequently to improve circulation. visited today. Pt. denied pain. Report given to MUNIRA Ang. Call light and belongings in reach.
[2020-12-05 19:35] VITALS: BP 121/91; PULSE 63; TEMP 98.2
--- NOTE | 2020-12-05 21:46 | NUR ---
Patient has been refusing Heparin injections, but does get up and walk in the halls frequently. Denies SOB and dyspnea. LS CTA. Patient's blood sugar was 244 at HS. Was to get 6 units of sliding scale insulin, but refused. Explained what sliding scale was for and why, but stated that he did not want the insulin at bedtime, even if he was to get a snack. Patient voices no questions, needs, or concerns at this time. Resting in recliner with call light within reach.
[2020-12-06] VITALS (9 sets, daily range): BP systolic 121–155; BP diastolic 53–65; PULSE 73–94; TEMP 97.9–100.5
--- NOTE | 2020-12-06 05:53 | NUR ---
Patient has voiced no questions, needs, or concerns this shift. Resting in bed watching TV at this time. Call light within reach.
[2020-12-06 07:14] LABS: MEAN CELL VOLUME 85 fl (80.0-100.0); MEAN CORPUSCULAR HGB CONC 30 g/dl (33.0-37.0); MEAN PLATELET VOLUME 11.5 fl (7.4-10.4); PLATELET COUNT 166 K/mm3 (130-400); RED BLOOD COUNT 3.55 M/mm3 (4.20-5.60); REDCELL DISTRIBUTION WIDTH-CV 15.1 % (11.5-14.5)
[2020-12-06 07:31] LABS: CALCIUM 8.9 mg/dL (8.4-10.2); CREATININE, serum 1.27 mg/dL (0.72-1.25); POTASSIUM 3.8 mmol/L (3.5-4.5)
[2020-12-06 08:01] LABS: HEMOGLOBIN 9.1 g/dl (13.5-18.0); MEAN CORPUSCULAR HEMOGLOBIN 26 pg (27.0-31.0)
--- NOTE | 2020-12-06 13:02 | NUR ---
Pt. progressing w/ plan of care. PICC line was placed to pt.'s R upper arm by IV nurse Glo. Pt. OOB ambulating, at bedside. Pt. reports he will order lunch. Pt. denies pain. Needs addressed, call light and belongings in reach.
--- NOTE | 2020-12-06 16:05 | NUR ---
SW attended clinical rounds. The patient's at bedside. The patient is going to need IV Eraxis daily for 14 days. The patient and his report that they would like to receive the IV [facility]. The patient is to have a PICC placed today and tentatively discharge tomorrow. SW to continue to follow.
--- NOTE | 2020-12-06 16:36 | NUR ---
Pt. reporting feeling chills and shivering this afternoon. Pt. ate only a small amount of lunch and report he "just doesn't feel well" Pt. reports feeling stressed about PICC line being placed today. Pt. and concerned. VICTOR MANUEL Lui notified regarding these concerns on the telephone. This RN asked VICTOR MANUEL Lui if she could see the pt. VICTOR MANUEL Lui reports she will see the pt. before she leaves this evening. Pt.'s temp 100.0, will report to VICTOR MANUEL Lui when she comes by.
--- NOTE | 2020-12-06 18:51 | NUR ---
Pt.'s temp of 100.0 reported to VICTOR MANUEL Lui. This RN checked on pt., pt. reports he is feeling better this afternoon. Report provided to MUNIRA Ang. Call light and belongings in reach.
--- NOTE | 2020-12-06 19:58 | NUR ---
Patient assessed at this time. Alert and oriented x 4, and able to make needs known. Denies having pain and discomfort at this time. PICC to RUE. Patient's temp is at 99.4 at this time. Does have some chills, but reports it is not as bad. Denies chest pain/discomfort/indigestion feeling, stating that all symptoms have resolved. Patient's BS was 162 and did agree to take sliding scale insulin tonight per orders. Patient given snack. Patient continues to refuse Heparin injections due to hx GI bleed. MD is aware. Voices no questions, needs, or concerns at this time. Resting in bed with call light within reach.
[2020-12-06 22:42] LABS: BASO % 0.6 % (0.0-2.0); EOS # 0.1 (0.0-0.7); EOS % 1.2 % (0-4.0); GRAN # 4.1 (1.4-6.5); GRAN % 83.1 % (42.2-75.2); LYMPH # 0.4 (1.2-3.4); LYMPH % 8.6 % (20.0-51.0); MEAN CELL VOLUME 85 fl (80.0-100.0); MEAN CORPUSCULAR HGB CONC 30 g/dl (33.0-37.0); MEAN PLATELET VOLUME 10.8 fl (7.4-10.4); MONO # 0.3 (0.1-0.6); MONO % 5.9 % (1.7-9.3); PLATELET COUNT 162 K/mm3 (130-400); RED BLOOD COUNT 3.23 M/mm3 (4.20-5.60); REDCELL DISTRIBUTION WIDTH-CV 15.2 % (11.5-14.5)
[2020-12-06 22:47] LABS: HEMATOCRIT 27.3 % (42.0-52.0); HEMOGLOBIN 8.2 g/dl (13.5-18.0); MEAN CORPUSCULAR HEMOGLOBIN 25 pg (27.0-31.0)
[2020-12-06 22:54] LABS: CALCIUM 8.8 mg/dL (8.4-10.2); CREATININE, serum 1.28 mg/dL (0.72-1.25); POTASSIUM 3.9 mmol/L (3.5-4.5)
[2020-12-06 23:04] LABS: TROPONIN-I 0.073 ng/mL (0.00-0.033)
[2020-12-07 04:05] VITALS: BP 119/45; PULSE 70; TEMP 98.1
--- NOTE | 2020-12-07 05:40 | NUR ---
During the night, patient had complained of nausea/indigestion. VSS, temp max 100.5. No changes on Telemetry. Labs ordered and obtained. BS 140s. Given PRN APAP, as well as PRN Zofran. Notified VICTOR MANUEL Hughes of Critical Troponin. No new orders. Patient stated that he was feeling better afterwards. No complaints this morning of pain, discomfort, nausea, or indigestion. Patient has been afebrile since receiving APAP. Voices no questions, needs, or concerns at this time. Resting in recliner with call light within reach.
[2020-12-07 06:39] LABS: BASO % 0.5 % (0.0-2.0); EOS % 0.3 % (0-4.0); GRAN # 2.7 (1.4-6.5); GRAN % 72.8 % (42.2-75.2); LYMPH # 0.7 (1.2-3.4); LYMPH % 17.3 % (20.0-51.0); MEAN CELL VOLUME 86 fl (80.0-100.0); MEAN CORPUSCULAR HGB CONC 30 g/dl (33.0-37.0); MEAN PLATELET VOLUME 10.3 fl (7.4-10.4); MONO # 0.3 (0.1-0.6); MONO % 8.8 % (1.7-9.3); PLATELET COUNT 155 K/mm3 (130-400); RED BLOOD COUNT 3.57 M/mm3 (4.20-5.60); REDCELL DISTRIBUTION WIDTH-CV 15.3 % (11.5-14.5)
[2020-12-07 06:44] LABS: HEMATOCRIT 30.7 % (42.0-52.0); HEMOGLOBIN 9.2 g/dl (13.5-18.0); MEAN CORPUSCULAR HEMOGLOBIN 26 pg (27.0-31.0)
[2020-12-07 06:52] LABS: CALCIUM 9.1 mg/dL (8.4-10.2); CREATININE, serum 1.33 mg/dL (0.72-1.25); POTASSIUM 4.1 mmol/L (3.5-4.5)
[2020-12-07 08:13] VITALS: BP 130/54; PULSE 69; TEMP 98.4
--- NOTE | 2020-12-07 11:12 | NUR ---
Assessment completed, alert/oriented, vital signs stable, afebrile this morning but did have a low grade fever overnight, denies pain or discomfort and stated he "feels great" this morning, heart RRR/ distal pulses are palpable, lungs CTA/ no resp.difficulty, he does have some 1-2 + edema to BLE, present in the room, is evaluating now and wants to keep 1 more day due to the fact he spike fever overnight, patient verabalizes understanding, denies other needs
[2020-12-07 12:42] VITALS: BP 122/50; PULSE 68; TEMP 98.1
[2020-12-07 16:00] VITALS: BP 128/55; PULSE 75; TEMP 98.4
[2020-12-07 19:48] VITALS: BP 144/58; PULSE 74; TEMP 97.9
--- NOTE | 2020-12-07 20:32 | NUR ---
Patient assessed. Denies pain and discomfort. Patient has been afebrile today. Updated Dr. Mendoza when called for update. States he has had no further episodes of nausea/indigestion since last night. Voices no questions, needs, or concerns at this time. Resting in bed with call light within reach.
[2020-12-08 00:19] VITALS: BP 143/51; PULSE 70; TEMP 97.8
[2020-12-08 04:41] VITALS: BP 141/57; PULSE 66; TEMP 97.6
--- NOTE | 2020-12-08 05:37 | NUR ---
Patient has been afebrile this shift. Has voiced no questions, needs, or concerns this shift.
[2020-12-08 07:36] LABS: BASO % 0.8 % (0.0-2.0); EOS # 0.1 K/mm3 (0.0-0.7); GRAN # 1.9 K/mm3 (1.4-6.5); GRAN % 50.6 % (42.2-75.2); LYMPH # 1.3 K/mm3 (1.2-3.4); MEAN CELL VOLUME 86 fl (80.0-100.0); MEAN CORPUSCULAR HGB CONC 30 g/dl (33.0-37.0); MEAN PLATELET VOLUME 11.1 fl (7.4-10.4); MONO # 0.4 K/mm3 (0.1-0.6); MONO % 11.1 % (1.7-9.3); PLATELET COUNT 135 K/mm3 (130-400); RED BLOOD COUNT 3.69 M/mm3 (4.20-5.60); REDCELL DISTRIBUTION WIDTH-CV 15.3 % (11.5-14.5)
[2020-12-08 07:39] LABS: HEMATOCRIT 31.8 % (42.0-52.0); HEMOGLOBIN 9.5 g/dl (13.5-18.0); MEAN CORPUSCULAR HEMOGLOBIN 26 pg (27.0-31.0)
[2020-12-08 08:10] VITALS: BP 123/66; PULSE 69; TEMP 98
[2020-12-08 08:17] LABS: CREATININE, serum 1.41 mg/dL (0.72-1.25); POTASSIUM 4.1 mmol/L (3.5-4.5)
[2020-12-08] MEDS ORDERED: ERAXIS100 MG IV (10:14)
[2020-12-08] MEDS ORDERED: RANEXA 500MG T500 MG PO (10:39)
--- NOTE | 2020-12-08 13:50 | NUR ---
Patient to be discharged today. HA collaborated with MUNIRA Reza who advised she set up everything with [facility] for patient's Eraxis infusions. HA contacted Analia at [facility] and confirmed they had everything they need for patient. HA confirmed with MUNIRA Reza that appointment referral was sent to Infectious Disease for outpatient follow up. Discharge Plan: Home
== END 2020-12-08 13:15 | disposition home or self-care (01) | DRG 281 ==
LOC: COL.ER 06:43 → MEDICAL 09:31
PROVIDERS: Internal Medicine; Physician Assistant; Student in an Organized Health Care Education/Training Program; ADMIT Student in an Organized Health Care Education/Training Program
PROC: 02HV33Z Insertion of Infusion Device into Superior Vena Cava, Percutaneous Approach (ICD-10-PCS; principal; 2020-12-06)
DX: I21.4 Non-ST elevation (NSTEMI) myocardial infarction (principal); R78.81 Bacteremia; J98.11 Atelectasis; I13.0 Hypertensive heart and chronic kidney disease with heart failure and stage 1 through stage 4 chronic kidney disease, or unspecified chronic kidney disease; I50.32 Chronic diastolic (congestive) heart failure; I48.91 Unspecified atrial fibrillation; D64.9 Anemia, unspecified; N40.0 Benign prostatic hyperplasia without lower urinary tract symptoms; I73.9 Peripheral vascular disease, unspecified; I25.10 Atherosclerotic heart disease of native coronary artery without angina pectoris; E11.22 Type 2 diabetes mellitus with diabetic chronic kidney disease; I12.9 Hypertensive chronic kidney disease with stage 1 through stage 4 chronic kidney disease, or unspecified chronic kidney disease; B37.9 Candidiasis, unspecified; B96.89 Other specified bacterial agents as the cause of diseases classified elsewhere
CPT/HCPCS: 99223-AI; 99232-AI; 99233-AI; 99239; C1751; J0348; J1815; J2405; J2704; J7050; P9016; Q9967

== ENCOUNTER 2020-12-15 09:00 | Outpatient (RCR) | payer MEDICARE, OTHER ==
[2020-12-09 09:52] VITALS: BP 144/77; PULSE 79; TEMP 97.8
[2020-12-10 08:51] VITALS: BP 137/67; PULSE 82; TEMP 98.2
[2020-12-11 09:02] VITALS: BP 132/82; PULSE 80; TEMP 98.2
[2020-12-12 08:57] VITALS: BP 130/81; PULSE 69; TEMP 98.2
[2020-12-13 09:05] VITALS: BP 125/51; PULSE 73; TEMP 97.9
[2020-12-13 09:05] LABS: BASO % 0.6 % (0.0-2.0); EOS # 0.1 K/mm3 (0.0-0.7); EOS % 2.3 % (0-4.0); GRAN # 2.2 K/mm3 (1.4-6.5); LYMPH # 0.8 K/mm3 (1.2-3.4); LYMPH % 24.1 % (20.0-51.0); MEAN CELL VOLUME 84 fl (80.0-100.0); MEAN CORPUSCULAR HGB CONC 30 g/dl (33.0-37.0); MEAN PLATELET VOLUME 10.2 fl (7.4-10.4); MONO # 0.3 K/mm3 (0.1-0.6); MONO % 9.7 % (1.7-9.3); PLATELET COUNT 197 K/mm3 (130-400); RED BLOOD COUNT 3.71 M/mm3 (4.20-5.60); REDCELL DISTRIBUTION WIDTH-CV 15.5 % (11.5-14.5)
[2020-12-13 09:08] LABS: HEMATOCRIT 31.2 % (42.0-52.0); HEMOGLOBIN 9.4 g/dl (13.5-18.0); MEAN CORPUSCULAR HEMOGLOBIN 25 pg (27.0-31.0)
[2020-12-13 09:18] LABS: ALBUMIN 3.2 gm/dL (3.4-4.8); BILIRUBIN,TOTAL 0.5 mg/dL (0.2-1.2); CALCIUM 9.2 mg/dL (8.4-10.2); CREATININE, serum 1.4 mg/dL (0.72-1.25); POTASSIUM 4.2 mmol/L (3.5-4.5); TOTAL PROTEIN 7.2 gm/dL (6.2-8.1)
[2020-12-13 12:48] LABS: ERYTHROCYTE SEDIMENTATION RATE 20 mm/hr (0-30)
[2020-12-14 08:52] VITALS: BP 158/75; PULSE 82; TEMP 97.8
[~2020-12-15] VITALS: Ht 170.2 cm; Wt 121.0 kg
[~2020-12-15 09:00] MED LIST changes: +ERAXIS100 MG IV; +LASIX 20MG TABL20 MG PO; +RANEXA 500MG T500 MG PO
[2020-12-15 09:34] VITALS: BP 115/61; PULSE 75; TEMP 98.4
[2020-12-16 09:11] VITALS: BP 125/67; PULSE 74; TEMP 98.5
[2021-02-08] MEDS ORDERED: NATURAL IRON65 MG PO (08:25)
== END 2020-12-16 15:54 | disposition home or self-care (01) ==
LOC: EUO 09:00
PROVIDERS: Internal Medicine
DX: B37.7 Candidal sepsis (principal)
CPT/HCPCS: J0348

== ENCOUNTER → 2020-12-30 | Outpatient (CLI) | payer MEDICARE, OTHER | LOC: COL.LAB 09:38 | DX: B37.7 Candidal sepsis (principal) ==

== ENCOUNTER → 2021-01-14 | Outpatient (CLI) | payer MEDICARE, OTHER | LOC: COL.RAD 01-07 10:30 | DX: D64.9 Anemia, unspecified (principal) ==

== ENCOUNTER → 2021-02-01 | Outpatient (CLI) | payer MEDICARE, OTHER ==
[~2021-02-01] MED LIST changes: +NATURAL IRON65 MG PO
[2021-02-01 16:32] LABS: MEAN CELL VOLUME 90 fl (80.0-100.0); MEAN CORPUSCULAR HGB CONC 31 g/dl (33.0-37.0); MEAN PLATELET VOLUME 9.8 fl (7.4-10.4); PLATELET COUNT 143 K/mm3 (130-400); RED BLOOD COUNT 2.96 M/mm3 (4.20-5.60); REDCELL DISTRIBUTION WIDTH-CV 19.9 % (11.5-14.5)
[2021-02-01 16:42] LABS: HEMATOCRIT 26.5 % (42.0-52.0); HEMOGLOBIN 8.3 g/dl (13.5-18.0); MEAN CORPUSCULAR HEMOGLOBIN 28 pg (27.0-31.0)
[2021-02-01 16:51] LABS: BILIRUBIN,TOTAL 0.5 mg/dL (0.2-1.2); C-REACTIVE PROTEIN 3.01 mg/dL (0.00-0.50); CALCIUM 8.7 mg/dL (8.4-10.2); CREATININE, serum 1.51 mg/dL (0.72-1.25); POTASSIUM 4.4 mmol/L (3.5-4.5); TOTAL PROTEIN 7.3 gm/dL (6.2-8.1)
[2021-02-01 17:17] LABS: LYMPHOCYTE 36 % (20.0-51.0); NEUTROPHILS 64 % (42.0-75.2)
[2021-02-01 17:18] LABS: ANISOCYTOSIS 2+; HYPOCHROMIA 2+
[2021-02-01 17:19] LABS: PLATELET ESTIMATE NORMAL (NORMAL)
[2021-02-01 17:32] LABS: ERYTHROCYTE SEDIMENTATION RATE 28 mm/hr (0-30)
== END ==
LOC: COL.LAB 15:26
DX: B37.7 Candidal sepsis (principal)

== ENCOUNTER → 2021-02-11 | Outpatient (CLI) | payer MEDICARE, OTHER ==
[2021-02-11] VITALS (8 sets, daily range): BP systolic 132–187; BP diastolic 59–87; PULSE 71–83; TEMP 98.1
[~2021-02-11] VITALS: Ht 170.2 cm; Wt 120.1 kg
[2021-02-11 08:32] LABS: HEMATOCRIT 25.6 % (42.0-52.0); HEMOGLOBIN 7.9 g/dl (13.5-18.0); MEAN CELL VOLUME 90 fl (80.0-100.0); MEAN CORPUSCULAR HEMOGLOBIN 28 pg (27.0-31.0); MEAN CORPUSCULAR HGB CONC 31 g/dl (33.0-37.0); MEAN PLATELET VOLUME 9.7 fl (7.4-10.4); PLATELET COUNT 158 K/mm3 (130-400); RED BLOOD COUNT 2.86 M/mm3 (4.20-5.60); REDCELL DISTRIBUTION WIDTH-CV 19.3 % (11.5-14.5)
[2021-02-11 08:47] LABS: CALCIUM 9.4 mg/dL (8.4-10.2); CREATININE, serum 1.41 mg/dL (0.72-1.25); POTASSIUM 4.3 mmol/L (3.5-4.5)
[2021-02-11 08:49] LABS: INR 1.1 (0.8-3.0); PROTHROMBIN TIME 12.5 SECONDS (9.7-12.8)
--- NOTE | 2021-02-11 10:47 | NUR ---
Pt taken by wheelchair to radiology dept for ordered exams.
--- NOTE | 2021-02-11 12:30 | NUR ---
DC instructions reviewed with pt and . Both express understanding. PICC flushed and wrapped with adal wrap. 1 L NS was completed per Dr Oquendo's order. Pt is steady on feet in room. He is assisted out to 's car by wheelchair with belongings.
[2021-02-12 15:22] LABS: TB GOLD INTERPRETATION Negative (Negative)
[2021-02-15 17:38] LABS: LYME DISEASE ANTIBODIES Negative (Negative)
== END ==
LOC: COL.RAD 07:25
PROVIDERS: Internal Medicine Adult Congenital Heart Disease
DX: I08.2 Rheumatic disorders of both aortic and tricuspid valves (principal)
CPT/HCPCS: J0348; J7030; Q9967

== ENCOUNTER 2021-02-13 08:02 | Outpatient (RCR) | payer MEDICARE, OTHER ==
[~2021-02-13] VITALS: Ht 170.2 cm; Wt 111.1 kg
[~2021-02-13 08:02] MED LIST changes: +LASIX 80MG TABL80 MG PO
[2021-02-18] MEDS ORDERED: RANEXA1000 MG PO (08:14)
[2021-03-01 08:51] VITALS: BP 123/75; PULSE 75; TEMP 97.7
--- NOTE | 2021-03-01 09:45 | NUR ---
Here for cares. PICC intact right upper arm. Unable to decipher date on dressing. Patient reports unable to recall when PICC dressing change last. Sterile dressing change performed. No signs or symptoms of IV complications noted. No concerns voiced.
[2021-03-02 08:30] VITALS: BP 150/71; PULSE 83; TEMP 97.4
[2021-03-03 08:29] VITALS: BP 125/73; PULSE 70; TEMP 98.3
[2021-03-03] MEDS ORDERED: TYLENOL 325MG325 MG PO (08:38)
[2021-03-03] MEDS ORDERED: COREG 6.256.25 MG/TA PO (08:39)
[2021-03-03] MEDS ORDERED: PLAVIX 75MG TAB75 MG PO (08:39)
[2021-03-03] MEDS ORDERED: ERAXIS100 MG IV (08:40)
[2021-03-03] MEDS ORDERED: PREDFORTE5ML OU (08:42)
[2021-03-03] MEDS ORDERED: TRESIBA FL200 UNIT/1 SQ (08:44)
[2021-03-03] MEDS ORDERED: AMOXICILLIN 50500 MG PO (08:45)
[2021-03-04 08:27] VITALS: BP 106/65; PULSE 76; TEMP 98.2
== END 2021-03-04 10:57 | disposition home or self-care (01) ==
LOC: EUO 03-01 08:00
DX: B37.6 Candidal endocarditis (principal)
CPT/HCPCS: J0348

== ENCOUNTER 2021-02-18 08:00 | Outpatient (RCR) | payer MEDICARE, OTHER ==
[2021-02-03 12:35] VITALS: BP 110/53; PULSE 73; TEMP 98.5
--- NOTE | 2021-02-03 15:15 | NUR ---
INT DC'd with catheter intact. Pt will return tomorrow for PICC placement and continuation of IV meds as ordered. Pt exits dept with steady gait.
[2021-02-04 08:28] VITALS: BP 120/74; PULSE 84
[2021-02-04 09:49] VITALS: BP 94/45; PULSE 82
[2021-02-04 10:53] VITALS: BP 101/46; PULSE 81
[2021-02-04 12:50] VITALS: BP 114/49; PULSE 81
[2021-02-04 13:07] VITALS: BP 149/75; PULSE 89
--- NOTE | 2021-02-04 13:15 | NUR ---
Pt ready to go home. Eraxis infusion was administered through newly inserted PICC line with no problem. Pt is up and ambulatory at time of departure, there is no dizziness, pain or swelling reported or observed. Pt denies questions states will return to ER entrance tomorrow, for admittance to [facility] for infusion.
[2021-02-05 08:26] VITALS: BP 126/70; PULSE 76; TEMP 98.2
[2021-02-07 08:09] VITALS: BP 120/67; PULSE 76; TEMP 97.7
[2021-02-07 08:11] LABS: BASO % 0.4 % (0.0-2.0); EOS % 0.9 % (0-4.0); GRAN # 1.5 K/mm3 (1.4-6.5); LYMPH # 0.6 K/mm3 (1.2-3.4); LYMPH % 25.7 % (20.0-51.0); MEAN CELL VOLUME 90 fl (80.0-100.0); MEAN CORPUSCULAR HGB CONC 31 g/dl (33.0-37.0); MEAN PLATELET VOLUME 10.1 fl (7.4-10.4); MONO # 0.2 K/mm3 (0.1-0.6); MONO % 9.6 % (1.7-9.3); PLATELET COUNT 131 K/mm3 (130-400); RED BLOOD COUNT 2.84 M/mm3 (4.20-5.60); REDCELL DISTRIBUTION WIDTH-CV 19.2 % (11.5-14.5)
[2021-02-07 08:12] LABS: HEMATOCRIT 25.5 % (42.0-52.0); HEMOGLOBIN 7.8 g/dl (13.5-18.0); MEAN CORPUSCULAR HEMOGLOBIN 27 pg (27.0-31.0)
[2021-02-07 08:33] LABS: ALBUMIN 2.8 gm/dL (3.4-4.8); BILIRUBIN,TOTAL 0.5 mg/dL (0.2-1.2); C-REACTIVE PROTEIN 2.8 mg/dL (0.00-0.50); CALCIUM 8.4 mg/dL (8.4-10.2); CREATININE, serum 1.54 mg/dL (0.72-1.25); POTASSIUM 4.2 mmol/L (3.5-4.5); TOTAL PROTEIN 6.8 gm/dL (6.2-8.1)
[2021-02-07 08:44] LABS: ERYTHROCYTE SEDIMENTATION RATE 31 mm/hr (0-30)
[2021-02-08 08:08] VITALS: BP 126/70; PULSE 78; TEMP 98
[2021-02-09 08:26] VITALS: BP 111/67; PULSE 71; TEMP 98
[2021-02-10 09:12] VITALS: BP 116/65; PULSE 71; TEMP 98
[2021-02-12 09:12] VITALS: BP 153/71; PULSE 84; TEMP 98.2
--- NOTE | 2021-02-12 10:12 | NUR ---
I was unable to flush or get blood return from purple port of patient's PICC. I did flush and get blood return from red port, so used that site to run his antibiotics. I called House Superviser (Gila) to ask if I needed to do anythng specific. She stated no, Glo would take care of it on Sunday, but to try flushing it again before he left. I did try without success to flush it prior to his leaving.
[2021-02-13 08:53] VITALS: BP 115/76; BP 136/73; PULSE 70; PULSE 72; TEMP 98.3; TEMP 98.5
[2021-02-14 08:19] VITALS: BP 127/69; PULSE 73; TEMP 97.8
[2021-02-14 08:23] LABS: MEAN CELL VOLUME 90 fl (80.0-100.0); MEAN CORPUSCULAR HGB CONC 31 g/dl (33.0-37.0); MEAN PLATELET VOLUME 9.6 fl (7.4-10.4); PLATELET COUNT 123 K/mm3 (130-400); RED BLOOD COUNT 2.72 M/mm3 (4.20-5.60); REDCELL DISTRIBUTION WIDTH-CV 19.1 % (11.5-14.5)
[2021-02-14 08:31] LABS: HEMATOCRIT 24.6 % (42.0-52.0); HEMOGLOBIN 7.5 g/dl (13.5-18.0); MEAN CORPUSCULAR HEMOGLOBIN 28 pg (27.0-31.0)
[2021-02-14 08:36] LABS: ALBUMIN 2.8 gm/dL (3.4-4.8); BILIRUBIN,TOTAL 0.5 mg/dL (0.2-1.2); C-REACTIVE PROTEIN 1.59 mg/dL (0.00-0.50); CALCIUM 8.4 mg/dL (8.4-10.2); CREATININE, serum 1.47 mg/dL (0.72-1.25); POTASSIUM 4.3 mmol/L (3.5-4.5); TOTAL PROTEIN 6.6 gm/dL (6.2-8.1)
[2021-02-14 09:04] LABS: ERYTHROCYTE SEDIMENTATION RATE 37 mm/hr (0-30)
[2021-02-14 10:00] LABS: BAND 5 % (0-10); EOSINOPHIL 7 % (0-4); LYMPHOCYTE 37 % (20.0-51.0); NEUTROPHILS 46 % (42.0-75.2)
[2021-02-14 10:02] LABS: PLATELET ESTIMATE DECREASED (NORMAL)
[2021-02-15 09:04] VITALS: BP 135/75; PULSE 76; TEMP 98.1
[2021-02-16] VITALS (10 sets, daily range): BP systolic 113–144; BP diastolic 61–74; PULSE 69–77; TEMP 98–99.1
--- NOTE | 2021-02-16 11:10 | NUR ---
BLOOD RETURN OBTAINED AFTER CATHFOW IN BILATERAL PORTS FOR 30 MINUTES.
[2021-02-17 08:12] VITALS: BP 145/66; PULSE 80; TEMP 98.3
--- NOTE | 2021-02-17 08:40 | NUR ---
RN reports patient complained of a "funny feeling left side of his neck" during blood transfusion. c x ray done and reviewed. PICC intact. sterile dressing change done.
[~2021-02-18] VITALS: Ht 170.2 cm; Wt 123.6 kg
[2021-02-18] MEDS ORDERED: RANEXA1000 MG PO (08:14)
[2021-02-18 08:33] VITALS: BP 133/73; PULSE 74; TEMP 98.4
--- NOTE | 2021-02-19 10:01 | NUR ---
[facility] contacted [facility] this am to inform up the Issac was hospitalized last night for heart issues. Account will be closed, and new account opened if and when Issac needs to resume infusions.
== END 2021-02-19 09:53 | disposition home or self-care (01) ==
LOC: EUO 08:00
PROVIDERS: Internal Medicine Infectious Disease
DX: Z45.2 Encounter for adjustment and management of vascular access device (principal); I82.611 Acute embolism and thrombosis of superficial veins of right upper extremity; B37.7 Candidal sepsis
CPT/HCPCS: C1751; C1892; J0348; J2704; J2997; J7050; P9016; P9040

== ENCOUNTER 2021-02-18 20:00 | Emergency (ER) | payer MEDICARE, OTHER ==
[~2021-02-18] VITALS: Ht 170.2 cm; Wt 121.8 kg
[~2021-02-18 20:00] MED LIST changes: -LASIX 80MG TABL80 MG PO; +RANEXA1000 MG PO
[2021-02-18 20:02] VITALS: TEMP 98.2
[2021-02-18 20:18] LABS: BASO % 0.3 % (0.0-2.0); EOS % 0.3 % (0.0-4.0); GRAN # 2.4 K/mm3 (1.4-6.5); GRAN % 76.8 % (42.2-75.2); LYMPH # 0.5 K/mm3 (1.2-3.4); LYMPH % 15.9 % (20.0-51.0); MEAN CELL VOLUME 87 fl (80.0-100.0); MEAN CORPUSCULAR HGB CONC 32 g/dl (33.0-37.0); MEAN PLATELET VOLUME 10.1 fl (7.4-10.4); MONO # 0.2 K/mm3 (0.1-0.6); MONO % 6.1 % (1.7-9.3); PLATELET COUNT 143 K/mm3 (130-400); RED BLOOD COUNT 3.39 M/mm3 (4.20-5.60); REDCELL DISTRIBUTION WIDTH-CV 18.1 % (11.5-14.5)
[2021-02-18 20:23] LABS: HEMATOCRIT 29.4 % (42.0-52.0); HEMOGLOBIN 9.4 g/dl (13.5-18.0); MEAN CORPUSCULAR HEMOGLOBIN 28 pg (27-31)
[2021-02-18 20:33] VITALS: BP 146/68; PULSE 96
[2021-02-18 20:35] LABS: INR 1.2 (0.8-3.0); PROTHROMBIN TIME 13.3 SECONDS (9.7-12.8)
[2021-02-18 20:37] LABS: PARTIAL THROMBOPLASTIN TIME 25.7 SECONDS (26.0-37.0)
[2021-02-18 21:14] LABS: ALBUMIN 2.9 gm/dL (3.4-4.8); CALCIUM 8.4 mg/dL (8.4-10.2); CREATININE, serum 1.48 mg/dL (0.72-1.25); POTASSIUM 4.1 mmol/L (3.5-4.5)
[2021-02-18 21:24] LABS: TROPONIN-I 0.082 ng/mL (0.00-0.033)
== END 2021-02-18 20:30 | disposition short-term general hospital (02) ==
LOC: COL.ER 20:00
PROVIDERS: Emergency Medicine
DX: I21.3 ST elevation (STEMI) myocardial infarction of unspecified site (principal); I25.10 Atherosclerotic heart disease of native coronary artery without angina pectoris; I25.2 Old myocardial infarction; Z79.82 Long term (current) use of aspirin
CPT/HCPCS: J1644; J3101

== ENCOUNTER 2021-03-28 15:02 | Outpatient (RCR) | payer MEDICARE, OTHER ==
[~2021-03-28 15:02] MED LIST changes: +AMOXICILLIN 50500 MG PO; +PREDFORTE5ML OU; +TYLENOL 325MG325 MG PO
== END 2021-04-04 | disposition home or self-care (01) ==
LOC: COL.CR
DX: Z48.812 Encounter for surgical aftercare following surgery on the circulatory system (principal); Z95.5 Presence of coronary angioplasty implant and graft

== ENCOUNTER → 2021-05-02 | Outpatient (RCR) | payer MEDICARE, OTHER ==
[2021-04-05 08:35] VITALS: BP 146/76; PULSE 74; TEMP 97.9
[2021-04-06 09:16] VITALS: BP 116/60; PULSE 74; TEMP 98
[2021-04-07 08:29] VITALS: BP 154/80; PULSE 81; TEMP 98.2
[2021-04-08 08:17] VITALS: BP 128/71; PULSE 82; TEMP 98.3
--- NOTE | 2021-04-08 08:50 | NUR ---
Small amount of dried reddish drainage noted on patch. PICC sterile dressing change done. no further drainage noted.
[2021-04-09 08:30] VITALS: BP 111/58; PULSE 76; TEMP 98.5
[2021-04-10 08:27] VITALS: BP 111/58; PULSE 72; TEMP 98
[2021-04-11 08:32] LABS: BASO % 0.3 % (0.0-2.0); EOS % 1.3 % (0.0-4.0); GRAN # 2.3 K/mm3 (1.4-6.5); GRAN % 76.5 % (42.2-75.2); HEMOGLOBIN 10.1 g/dl (13.5-18.0); LYMPH # 0.5 K/mm3 (1.2-3.4); MEAN CELL VOLUME 89 fl (80.0-100.0); MEAN CORPUSCULAR HEMOGLOBIN 28 pg (27-31); MEAN CORPUSCULAR HGB CONC 32 g/dl (33.0-37.0); MEAN PLATELET VOLUME 9.8 fl (7.4-10.4); MONO # 0.1 K/mm3 (0.1-0.6); MONO % 4.6 % (1.7-9.3); PLATELET COUNT 141 K/mm3 (130-400); RED BLOOD COUNT 3.58 M/mm3 (4.20-5.60); REDCELL DISTRIBUTION WIDTH-CV 15.6 % (11.5-14.5)
[2021-04-11 09:00] LABS: ALBUMIN 3.4 gm/dL (3.4-4.8); BILIRUBIN,TOTAL 0.6 mg/dL (0.2-1.2); C-REACTIVE PROTEIN 1.67 mg/dL (0.00-0.50); CALCIUM 9.1 mg/dL (8.4-10.2); CREATININE, serum 1.61 mg/dL (0.72-1.25); POTASSIUM 4.6 mmol/L (3.5-4.5); TOTAL PROTEIN 7.2 gm/dL (6.2-8.1)
[2021-04-11 09:15] VITALS: BP 130/58; PULSE 70; TEMP 97.8
[2021-04-12 08:22] VITALS: BP 129/66; PULSE 75; TEMP 98.5
[2021-04-13 08:18] VITALS: BP 127/56; PULSE 79; TEMP 98.2
[2021-04-14 08:24] VITALS: BP 133/57; PULSE 78; TEMP 97.5
[2021-04-14 09:49] LABS: MEAN CELL VOLUME 88 fl (80.0-100.0); MEAN CORPUSCULAR HGB CONC 33 g/dl (33.0-37.0); PLATELET COUNT 123 K/mm3 (130-400); RED BLOOD COUNT 3.39 M/mm3 (4.20-5.60); REDCELL DISTRIBUTION WIDTH-CV 15.6 % (11.5-14.5)
[2021-04-14 09:52] LABS: HEMATOCRIT 29.9 % (42.0-52.0); HEMOGLOBIN 9.8 g/dl (13.5-18.0); MEAN CORPUSCULAR HEMOGLOBIN 29 pg (27-31)
[2021-04-14 10:26] LABS: ANISOCYTOSIS 1+; BAND 1 % (0-10); BASOPHIL 1 % (0-2); HYPOCHROMIA 1+; PLATELET ESTIMATE DECREASED (NORMAL)
[2021-04-14 10:27] LABS: LYMPHOCYTE 14 % (20.0-51.0); NEUTROPHILS 78 % (42.0-75.2)
[2021-04-15 08:50] VITALS: BP 115/72; PULSE 74; TEMP 98.4
[2021-04-16 08:12] VITALS: BP 112/64; PULSE 71; TEMP 98
[2021-04-17 07:54] VITALS: BP 136/68; PULSE 75; TEMP 97.9
[2021-04-18 08:17] VITALS: BP 131/59; PULSE 76; TEMP 97.8
[2021-04-18 09:56] LABS: MEAN CELL VOLUME 89 fl (80.0-100.0); MEAN CORPUSCULAR HGB CONC 33 g/dl (33.0-37.0); MEAN PLATELET VOLUME 9.7 fl (7.4-10.4); PLATELET COUNT 148 K/mm3 (130-400); RED BLOOD COUNT 3.38 M/mm3 (4.20-5.60); REDCELL DISTRIBUTION WIDTH-CV 15.5 % (11.5-14.5)
[2021-04-18 10:09] LABS: HEMOGLOBIN 9.8 g/dl (13.5-18.0); MEAN CORPUSCULAR HEMOGLOBIN 29 pg (27-31)
[2021-04-18 10:14] LABS: ALBUMIN 3.2 gm/dL (3.4-4.8); BILIRUBIN,TOTAL 0.7 mg/dL (0.2-1.2); C-REACTIVE PROTEIN 1.3 mg/dL (0.00-0.50); CALCIUM 8.8 mg/dL (8.4-10.2); CREATININE, serum 1.57 mg/dL (0.72-1.25); POTASSIUM 4.1 mmol/L (3.5-4.5); TOTAL PROTEIN 6.8 gm/dL (6.2-8.1)
[2021-04-18 10:44] LABS: BAND 2 % (0-10); BASOPHIL 2 % (0-2); EOSINOPHIL 1 % (0-4); LYMPHOCYTE 26 % (20.0-51.0); NEUTROPHILS 63 % (42.0-75.2)
[2021-04-18 10:46] LABS: ANISOCYTOSIS 1+; HYPOCHROMIA 1+; PLATELET ESTIMATE NORMAL (NORMAL)
[2021-04-19 08:22] VITALS: BP 119/69; PULSE 78; TEMP 98
--- NOTE | 2021-04-20 10:08 | NUR ---
Pt called this am early reporting elevated temp.pt reports he is unable to drive.This nurse instructed pt to call provider for directions in regards to fever and apt.Pt reporst he will let me know.
[2021-04-20 17:27] VITALS: BP 110/55; PULSE 78; TEMP 98.3
[2021-04-21 10:31] VITALS: BP 99/58; PULSE 80; TEMP 98.1
[2021-04-22 08:19] VITALS: BP 108/65; PULSE 76; TEMP 98.6
[2021-04-23 07:50] VITALS: BP 126/70; PULSE 80; TEMP 98.1
[2021-04-24 09:12] VITALS: BP 126/73; PULSE 74; TEMP 98.2
[2021-04-25 08:49] LABS: MEAN CELL VOLUME 89 fl (80.0-100.0); MEAN CORPUSCULAR HGB CONC 32 g/dl (33.0-37.0); MEAN PLATELET VOLUME 9.7 fl (7.4-10.4); PLATELET COUNT 130 K/mm3 (130-400); RED BLOOD COUNT 3.28 M/mm3 (4.20-5.60); REDCELL DISTRIBUTION WIDTH-CV 15.7 % (11.5-14.5)
[2021-04-25 08:53] LABS: HEMATOCRIT 29.2 % (42.0-52.0); HEMOGLOBIN 9.4 g/dl (13.5-18.0); MEAN CORPUSCULAR HEMOGLOBIN 29 pg (27-31)
[2021-04-25 08:59] VITALS: BP 106/66; PULSE 78; TEMP 99.3
[2021-04-25 09:11] LABS: ALBUMIN 3.2 gm/dL (3.4-4.8); C-REACTIVE PROTEIN 1.45 mg/dL (0.00-0.50); CALCIUM 8.9 mg/dL (8.4-10.2); CREATININE, serum 1.59 mg/dL (0.72-1.25); POTASSIUM 4.2 mmol/L (3.5-4.5); TOTAL PROTEIN 6.8 gm/dL (6.2-8.1)
[2021-04-25 09:58] LABS: BILIRUBIN,TOTAL 0.8 mg/dL (0.2-1.2)
[2021-04-25 10:25] LABS: LYMPHOCYTE 15 % (20.0-51.0); NEUTROPHILS 79 % (42.0-75.2)
[2021-04-25 10:26] LABS: ANISOCYTOSIS 1+; HYPOCHROMIA 1+; PLATELET ESTIMATE NORMAL (NORMAL)
[2021-04-26 08:02] VITALS: BP 103/62; PULSE 64; TEMP 98.2
[2021-04-27 08:12] VITALS: BP 138/68; PULSE 77; TEMP 97.9
[2021-04-28 08:16] VITALS: BP 129/70; PULSE 83; TEMP 98.5
[2021-04-29 08:28] LABS: MEAN CELL VOLUME 92 fl (80.0-100.0); MEAN CORPUSCULAR HGB CONC 32 g/dl (33.0-37.0); MEAN PLATELET VOLUME 10.1 fl (7.4-10.4); PLATELET COUNT 128 K/mm3 (130-400); RED BLOOD COUNT 3.05 M/mm3 (4.20-5.60); REDCELL DISTRIBUTION WIDTH-CV 16.6 % (11.5-14.5)
[2021-04-29 08:36] LABS: HEMATOCRIT 27.9 % (42.0-52.0); HEMOGLOBIN 8.8 g/dl (13.5-18.0); MEAN CORPUSCULAR HEMOGLOBIN 29 pg (27-31)
[2021-04-29 08:47] LABS: BILIRUBIN,TOTAL 0.7 mg/dL (0.2-1.2); CALCIUM 8.8 mg/dL (8.4-10.2); CREATININE, serum 1.58 mg/dL (0.72-1.25); POTASSIUM 4.2 mmol/L (3.5-4.5); TOTAL PROTEIN 6.6 gm/dL (6.2-8.1)
[2021-04-29 08:48] VITALS: BP 105/56; PULSE 77; TEMP 98.7
[2021-04-29 09:32] LABS: BAND 9 % (0-10); LYMPHOCYTE 29 % (20.0-51.0); NEUTROPHILS 57 % (42.0-75.2)
[2021-04-29 09:33] LABS: ANISOCYTOSIS 1+; PLATELET ESTIMATE NORMAL (NORMAL)
[2021-04-29 09:34] LABS: MICROCYTOSIS 1+
[2021-04-30 09:31] VITALS: BP 114/62; PULSE 73; TEMP 98.1
[2021-05-01 08:12] VITALS: BP 112/65; PULSE 78; TEMP 98.2
[2021-05-02] VITALS (10 sets, daily range): BP systolic 100–149; BP diastolic 45–75; PULSE 69–670; TEMP 97.7–98.7
[~2021-05-02] VITALS: Ht 170.2 cm; Wt 114.3 kg
[~2021-05-02] MED LIST changes: +CEFTIN500 MG PO; +MYCAMINE100 MG IV; +MYCAMINE50 MG IV; +PHARMASSURE ZIN50 MG PO; +PHENERGAN 25 TA25 MG PO; +SYSTANE 0.4%-0.1 SOL OU; +TAMIFLU 75MG75 MG PO; +ZYLOPRIM 300MG300 MG PO
[2021-05-02 07:36] LABS: KAPPA FREE LIGHT CHAIN-SERUM 90.22 mg/L (()); KAPPA LAMBDA RATIO 2.38 ratio (())
[2021-05-02 09:13] LABS: BASO % 0.5 % (0.0-2.0); GRAN # 1.4 K/mm3 (1.4-6.5); GRAN % 64.7 % (42.2-75.2); LYMPH # 0.6 K/mm3 (1.2-3.4); LYMPH % 27.1 % (20.0-51.0); MEAN CELL VOLUME 91 fl (80.0-100.0); MEAN CORPUSCULAR HGB CONC 32 g/dl (33.0-37.0); MEAN PLATELET VOLUME 9.9 fl (7.4-10.4); MONO # 0.2 K/mm3 (0.1-0.6); MONO % 7.2 % (1.7-9.3); PLATELET COUNT 114 K/mm3 (130-400); RED BLOOD COUNT 2.59 M/mm3 (4.20-5.60); REDCELL DISTRIBUTION WIDTH-CV 17.6 % (11.5-14.5)
[2021-05-02 09:14] LABS: HEMATOCRIT 23.5 % (42.0-52.0); HEMOGLOBIN 7.6 g/dl (13.5-18.0); MEAN CORPUSCULAR HEMOGLOBIN 29 pg (27-31)
[2021-05-02 09:28] LABS: BILIRUBIN,TOTAL 0.7 mg/dL (0.2-1.2); C-REACTIVE PROTEIN 4.34 mg/dL (0.00-0.50); CALCIUM 9.1 mg/dL (8.4-10.2); CREATININE, serum 1.82 mg/dL (0.72-1.25); POTASSIUM 3.8 mmol/L (3.5-4.5); TOTAL PROTEIN 6.4 gm/dL (6.2-8.1)
[2021-05-02 09:57] LABS: ERYTHROCYTE SEDIMENTATION RATE 31 mm/hr (0-30)
--- NOTE | 2021-05-02 11:00 | NUR ---
PT REMAINS IN EU 13 FOR 2 UNITS OF BLOOD, ADDITIONAL BLOOD DRAWN ORDERED
--- NOTE | 2021-05-02 17:10 | NUR ---
TRANSFUSION COMPLETED, PICC FLUSHED, PT DISCHARGED VIA W/C TO CAR BY STAFF
== END | disposition home or self-care (01) ==
LOC: EUO
PROVIDERS: Family Medicine; Internal Medicine; Internal Medicine Medical Oncology; Student in an Organized Health Care Education/Training Program
DX: Z45.2 Encounter for adjustment and management of vascular access device (principal); B37.6 Candidal endocarditis
CPT/HCPCS: C1751; J0348; J7050; P9016

== ENCOUNTER 2021-05-12 08:00 | Outpatient (RCR) | payer MEDICARE, OTHER ==
[2021-05-03 08:20] VITALS: BP 96/50; PULSE 72; TEMP 98.1
[2021-05-04 09:02] VITALS: BP 129/78; PULSE 82; TEMP 98
--- NOTE | 2021-05-05 08:15 | NUR ---
Blood drawn per order by Dr Helms. Line flused easily and gave slow but consistent blood return. Upon flushing line after draw, pt c/o sensation of movement in neck. Glo, [facility] contacted due to concern for tip migration of PICC line. CXR ordered.
[2021-05-05 08:24] LABS: MEAN CELL VOLUME 89 fl (80.0-100.0); MEAN CORPUSCULAR HGB CONC 33 g/dl (33.0-37.0); PLATELET COUNT 119 K/mm3 (130-400); RED BLOOD COUNT 3.19 M/mm3 (4.20-5.60); REDCELL DISTRIBUTION WIDTH-CV 17.9 % (11.5-14.5)
[2021-05-05 08:25] LABS: HEMATOCRIT 28.5 % (42.0-52.0); HEMOGLOBIN 9.5 g/dl (13.5-18.0); MEAN CORPUSCULAR HEMOGLOBIN 30 pg (27-31)
--- NOTE | 2021-05-05 08:30 | NUR ---
Contacted by patient's nurse that when PICC flushed, he reported a funny feeing in his throat. Chest xray done and reviewed. Catheter tip not located in the SVC. catheter power flushed with 100ml normal saline with a good blood return noted. chest x ray repeated. tip in mid SVC
[2021-05-05 09:00] VITALS: BP 112/65; PULSE 77; TEMP 97.8
--- NOTE | 2021-05-05 09:54 | NUR ---
ISMAEL Cody RN states that repeat chest xray shows tip of PICC line is now correct, and line may be used. Pt returned to recliner in rm 13.
[2021-05-06 08:00] VITALS: BP 105/65; PULSE 76; TEMP 97.6
[2021-05-07 07:48] VITALS: BP 103/67; PULSE 80; TEMP 98.1
[2021-05-08 07:44] VITALS: BP 113/67; PULSE 79; TEMP 97.7
[2021-05-09 07:54] VITALS: BP 88/56; PULSE 80; TEMP 97.4
[2021-05-09 08:24] LABS: BILIRUBIN,TOTAL 0.7 mg/dL (0.2-1.2); C-REACTIVE PROTEIN 1.24 mg/dL (0.00-0.50); CALCIUM 8.6 mg/dL (8.4-10.2); CREATININE, serum 1.52 mg/dL (0.72-1.25); POTASSIUM 3.8 mmol/L (3.5-4.5); TOTAL PROTEIN 6.7 gm/dL (6.2-8.1)
[2021-05-09 09:40] LABS: MEAN CELL VOLUME 93 fl (80.0-100.0); MEAN CORPUSCULAR HGB CONC 32 g/dl (33.0-37.0); MEAN PLATELET VOLUME 9.9 fl (7.4-10.4); PLATELET COUNT 140 K/mm3 (130-400); RED BLOOD COUNT 2.85 M/mm3 (4.20-5.60); REDCELL DISTRIBUTION WIDTH-CV 18.3 % (11.5-14.5); RETIC # 0.14 M/mm3 (0.02-0.16); RETIC % 4.9 % (0.5-3.52)
[2021-05-09 09:46] LABS: HEMATOCRIT 26.6 % (42.0-52.0); HEMOGLOBIN 8.6 g/dl (13.5-18.0); MEAN CORPUSCULAR HEMOGLOBIN 30 pg (27-31)
[2021-05-09 10:09] LABS: ERYTHROCYTE SEDIMENTATION RATE 27 mm/hr (0-30)
[2021-05-09 10:44] LABS: BAND 7 % (0-10); EOSINOPHIL 2 % (0-4); LYMPHOCYTE 27 % (20.0-51.0); NEUTROPHILS 59 % (42.0-75.2)
[2021-05-09 10:45] LABS: PLATELET ESTIMATE NORMAL (NORMAL)
[2021-05-09 10:46] LABS: ANISOCYTOSIS 2+; HYPOCHROMIA 1+
[2021-05-10 07:57] VITALS: BP 116/67; PULSE 81; TEMP 97.7
[2021-05-11 09:46] VITALS: BP 102/65; PULSE 72; TEMP 98.2
[~2021-05-12] VITALS: Ht 170.2 cm; Wt 114.3 kg
[~2021-05-12 08:00] MED LIST changes: -CEFTIN500 MG PO; -MYCAMINE100 MG IV; -MYCAMINE50 MG IV; -PHARMASSURE ZIN50 MG PO; -PHENERGAN 25 TA25 MG PO; -SYSTANE 0.4%-0.1 SOL OU; -TAMIFLU 75MG75 MG PO
[2021-05-12 08:23] VITALS: BP 100/60; PULSE 74; TEMP 98.3
--- NOTE | 2021-05-12 14:07 | NUR ---
Per pt report he is going to [facility] to be admitted.
[2021-05-26] MEDS ORDERED: COZAAR 25MG25 MG/TAB PO (08:54)
[2021-05-26] MEDS ORDERED: SYSTANE 0.4%-0.1 SOL OU (08:57)
[2021-07-12] MEDS ORDERED: PHENERGAN 25 TA25 MG PO (08:18)
[2021-07-18] MEDS ORDERED: PHARMASSURE ZIN50 MG PO (09:06)
[2021-07-20] MEDS ORDERED: CEFTIN500 MG PO (14:20)
[2021-07-22] MEDS ORDERED: MYCAMINE50 MG IV (12:21)
[2021-07-22] MEDS ORDERED: MYCAMINE100 MG IV (12:22)
[2021-07-31] MEDS ORDERED: TAMIFLU 75MG75 MG PO (09:36)
== END 2021-05-12 14:07 | disposition home or self-care (01) ==
LOC: EUO 08:00
PROVIDERS: Family Medicine; Internal Medicine Gastroenterology
DX: D64.9 Anemia, unspecified (principal); B37.9 Candidiasis, unspecified
CPT/HCPCS: J0348

== ENCOUNTER 2021-05-22 07:30 | Outpatient (RCR) | payer MEDICARE, OTHER ==
[2021-05-20 08:13] VITALS: BP 95/60; PULSE 69; TEMP 98
[2021-05-21 07:48] VITALS: BP 117/74; PULSE 75; TEMP 98.3
[~2021-05-22] VITALS: Ht 170.2 cm; Wt 110.8 kg
[2021-05-22 07:56] VITALS: BP 128/69; PULSE 77; TEMP 98.3
--- NOTE | 2021-05-23 09:00 | NUR ---
Pt's Matilda calls stating pt fell the night before and was evaluated in the ED and transferred to for further cares. She states she will keep us updated on pt's status. Current account will be closed.
== END 2021-05-23 09:00 | disposition home or self-care (01) ==
LOC: EUO 07:30
DX: B37.9 Candidiasis, unspecified (principal)
CPT/HCPCS: J0348

== ENCOUNTER 2021-05-22 18:01 | Emergency (ER) | payer MEDICARE, OTHER ==
[~2021-05-22] VITALS: Ht 167.6 cm; Wt 113.6 kg
[2021-05-22 19:12] LABS: MEAN CELL VOLUME 93 fl (80.0-100.0); MEAN CORPUSCULAR HGB CONC 33 g/dl (33.0-37.0); MEAN PLATELET VOLUME 10.7 fl (7.4-10.4); PLATELET COUNT 65 K/mm3 (130-400); RED BLOOD COUNT 3.11 M/mm3 (4.20-5.60); REDCELL DISTRIBUTION WIDTH-CV 18.6 % (11.5-14.5)
[2021-05-22 19:15] LABS: HEMATOCRIT 28.8 % (42.0-52.0); HEMOGLOBIN 9.5 g/dl (13.5-18.0); MEAN CORPUSCULAR HEMOGLOBIN 31 pg (27-31)
[2021-05-22 19:34] LABS: ALBUMIN 2.8 gm/dL (3.4-4.8); BILIRUBIN,TOTAL 1.1 mg/dL (0.2-1.2); CALCIUM 8.6 mg/dL (8.4-10.2); CREATININE, serum 1.83 mg/dL (0.72-1.25); POTASSIUM 3.8 mmol/L (3.5-4.5); TOTAL PROTEIN 6.5 gm/dL (6.2-8.1)
[2021-05-22 19:44] LABS: BAND 45 % (0-10); LYMPHOCYTE 4 % (20.0-51.0); METAMYELOCYTE 1 % (0-0); NEUTROPHILS 48 % (42.0-75.2); PLATELET ESTIMATE DECREASED (NORMAL)
[2021-05-22 19:45] LABS: ANISOCYTOSIS 2+
[2021-05-22 19:50] VITALS: TEMP 99.9
[2021-05-22 21:29] VITALS: BP 102/48; PULSE 82
[2021-05-26] MEDS ORDERED: COZAAR 25MG25 MG/TAB PO (08:54)
[2021-05-26] MEDS ORDERED: SYSTANE 0.4%-0.1 SOL OU (08:57)
== END 2021-05-22 21:35 | disposition short-term general hospital (02) ==
LOC: COL.ER 18:01
PROVIDERS: Nurse Practitioner Primary Care
DX: S00.93XA Contusion of unspecified part of head, initial encounter (principal); S10.93XA Contusion of unspecified part of neck, initial encounter; A41.9 Sepsis, unspecified organism; D70.9 Neutropenia, unspecified; Z20.822 Contact with and (suspected) exposure to COVID-19; W01.198A Fall on same level from slipping, tripping and stumbling with subsequent striking against other object, initial encounter; Y92.009 Unspecified place in unspecified non-institutional (private) residence as the place of occurrence of the external cause
CPT/HCPCS: J2185; J7030

== ENCOUNTER 2021-05-28 08:00 | Outpatient (RCR) | payer MEDICARE, OTHER ==
[2021-05-26 08:33] VITALS: BP 109/65; PULSE 70; TEMP 97.7
[2021-05-27 08:56] VITALS: BP 106/53; PULSE 70; TEMP 97.9
[~2021-05-28] VITALS: Ht 167.6 cm; Wt 109.9 kg
[~2021-05-28 08:00] MED LIST changes: +SYSTANE 0.4%-0.1 SOL OU
[2021-05-28 09:06] VITALS: BP 113/63; PULSE 67; TEMP 97.8
== END 2021-05-28 09:51 ==
LOC: EUO 08:00
DX: B37.9 Candidiasis, unspecified (principal); I38 Endocarditis, valve unspecified
CPT/HCPCS: J0348

== ENCOUNTER 2021-06-01 08:00 | Outpatient (RCR) | payer MEDICARE, OTHER ==
[2021-05-29 09:09] VITALS: BP 121/55; PULSE 66; TEMP 98.8
[2021-05-30 08:24] VITALS: BP 138/68; PULSE 70; TEMP 97.9
[2021-05-30 08:39] LABS: BASO % 0.5 % (0.0-2.0); GRAN # 1.2 K/mm3 (1.4-6.5); GRAN % 60.5 % (42.2-75.2); LYMPH # 0.6 K/mm3 (1.2-3.4); LYMPH % 29.5 % (20.0-51.0); MEAN CELL VOLUME 96 fl (80.0-100.0); MEAN CORPUSCULAR HGB CONC 32 g/dl (33.0-37.0); MEAN PLATELET VOLUME 10.8 fl (7.4-10.4); MONO # 0.2 K/mm3 (0.1-0.6); PLATELET COUNT 103 K/mm3 (130-400); RED BLOOD COUNT 2.87 M/mm3 (4.20-5.60)
[2021-05-30 08:40] LABS: HEMATOCRIT 27.5 % (42.0-52.0); HEMOGLOBIN 8.9 g/dl (13.5-18.0); MEAN CORPUSCULAR HEMOGLOBIN 31 pg (27-31)
[2021-05-30 08:54] LABS: ALBUMIN 2.9 gm/dL (3.4-4.8); BILIRUBIN,TOTAL 0.5 mg/dL (0.2-1.2); CALCIUM 8.3 mg/dL (8.4-10.2); CREATININE, serum 1.93 mg/dL (0.72-1.25); POTASSIUM 3.7 mmol/L (3.5-4.5); TOTAL PROTEIN 6.7 gm/dL (6.2-8.1)
[2021-05-30 09:22] LABS: C-REACTIVE PROTEIN 0.63 mg/dL (0.00-0.50)
[2021-05-31 08:10] VITALS: BP 119/66; PULSE 67; TEMP 98
[~2021-06-01] VITALS: Ht 167.6 cm; Wt 109.9 kg
[2021-06-01 08:18] VITALS: BP 143/67; PULSE 71; TEMP 98.1
[2021-07-12] MEDS ORDERED: PHENERGAN 25 TA25 MG PO (08:18)
[2021-07-18] MEDS ORDERED: PHARMASSURE ZIN50 MG PO (09:06)
[2021-07-20] MEDS ORDERED: CEFTIN500 MG PO (14:20)
[2021-07-22] MEDS ORDERED: MYCAMINE50 MG IV (12:21)
[2021-07-22] MEDS ORDERED: MYCAMINE100 MG IV (12:22)
[2021-07-31] MEDS ORDERED: TAMIFLU 75MG75 MG PO (09:36)
== END 2021-06-02 08:46 | disposition home or self-care (01) ==
LOC: EUO 08:00
PROVIDERS: Family Medicine
DX: B37.6 Candidal endocarditis (principal); D64.9 Anemia, unspecified
CPT/HCPCS: J0348

== ENCOUNTER 2021-06-20 08:00 | Outpatient (RCR) | payer MEDICARE, OTHER ==
[2021-06-03 08:46] VITALS: BP 121/64; PULSE 70; TEMP 98.3
[2021-06-03 09:07] LABS: MEAN CELL VOLUME 101 fl (80.0-100.0); MEAN CORPUSCULAR HGB CONC 31 g/dl (33.0-37.0); MEAN PLATELET VOLUME 10.7 fl (7.4-10.4); PLATELET COUNT 88 K/mm3 (130-400); RED BLOOD COUNT 2.64 M/mm3 (4.20-5.60); REDCELL DISTRIBUTION WIDTH-CV 18.6 % (11.5-14.5)
[2021-06-03 09:10] LABS: ALBUMIN 2.6 gm/dL (3.4-4.8); BILIRUBIN,TOTAL 0.6 mg/dL (0.2-1.2); CALCIUM 8.2 mg/dL (8.4-10.2); CREATININE, serum 1.76 mg/dL (0.72-1.25); POTASSIUM 3.4 mmol/L (3.5-4.5); TOTAL PROTEIN 6.1 gm/dL (6.2-8.1)
[2021-06-03 09:13] LABS: HEMATOCRIT 26.6 % (42.0-52.0); HEMOGLOBIN 8.3 g/dl (13.5-18.0); MEAN CORPUSCULAR HEMOGLOBIN 31 pg (27-31)
[2021-06-03 10:03] LABS: BAND 3 % (0-10); BASOPHIL 1 % (0-2); LYMPHOCYTE 40 % (20.0-51.0); NEUTROPHILS 51 % (42.0-75.2)
[2021-06-03 10:09] LABS: PLATELET ESTIMATE DECREASED (NORMAL)
[2021-06-03 10:12] LABS: ANISOCYTOSIS 2+; HYPOCHROMIA 2+
[2021-06-06 08:34] VITALS: BP 111/65; PULSE 67; TEMP 97.8
[2021-06-06 08:51] LABS: MEAN CELL VOLUME 97 fl (80.0-100.0); MEAN CORPUSCULAR HGB CONC 32 g/dl (33.0-37.0); MEAN PLATELET VOLUME 10.4 fl (7.4-10.4); PLATELET COUNT 97 K/mm3 (130-400); REDCELL DISTRIBUTION WIDTH-CV 18.3 % (11.5-14.5)
[2021-06-06 08:52] LABS: HEMATOCRIT 27.2 % (42.0-52.0); HEMOGLOBIN 8.8 g/dl (13.5-18.0); MEAN CORPUSCULAR HEMOGLOBIN 31 pg (27-31)
[2021-06-06 09:02] LABS: BAND 7 % (0-10); LYMPHOCYTE 45 % (20.0-51.0); NEUTROPHILS 40 % (42.0-75.2); PLATELET ESTIMATE DECREASED (NORMAL)
[2021-06-06 09:10] LABS: ALBUMIN 2.7 gm/dL (3.4-4.8); BILIRUBIN,TOTAL 0.5 mg/dL (0.2-1.2); C-REACTIVE PROTEIN 2.61 mg/dL (0.00-0.50); CALCIUM 8.5 mg/dL (8.4-10.2); CREATININE, serum 1.84 mg/dL (0.72-1.25); POTASSIUM 3.6 mmol/L (3.5-4.5); TOTAL PROTEIN 6.6 gm/dL (6.2-8.1)
[2021-06-07 08:22] VITALS: BP 116/68; PULSE 69; TEMP 99
[2021-06-08 08:10] VITALS: BP 135/72; PULSE 73; TEMP 98
--- NOTE | 2021-06-08 10:30 | NUR ---
Pt requested to wait a bit after trip to bathroom before leaving.Pt reports he has "overdone it the last couple days." Pt denies chest pain to this nurse but does report recent chest pain at home yesterday.Per pt this is not an unusal occurance and per pt his PCP is aware.Pt vitals are as follows 147/67,pulse 75,97% on room air.
[2021-06-09 08:16] VITALS: BP 137/69; PULSE 69; TEMP 97.7
[2021-06-10 08:35] VITALS: BP 122/47; PULSE 67; TEMP 97.7
[2021-06-13 08:39] LABS: MEAN CELL VOLUME 98 fl (80.0-100.0); MEAN CORPUSCULAR HGB CONC 32 g/dl (33.0-37.0); MEAN PLATELET VOLUME 10.3 fl (7.4-10.4); PLATELET COUNT 108 K/mm3 (130-400); REDCELL DISTRIBUTION WIDTH-CV 18.1 % (11.5-14.5)
[2021-06-13 08:46] LABS: ALBUMIN 2.7 gm/dL (3.4-4.8); BILIRUBIN,TOTAL 0.6 mg/dL (0.2-1.2); CALCIUM 8.4 mg/dL (8.4-10.2); CREATININE, serum 1.68 mg/dL (0.72-1.25); POTASSIUM 3.7 mmol/L (3.5-4.5); TOTAL PROTEIN 6.5 gm/dL (6.2-8.1)
[2021-06-13 08:55] VITALS: BP 104/58; PULSE 66; TEMP 98.5
[2021-06-13 08:56] LABS: HEMATOCRIT 27.5 % (42.0-52.0); HEMOGLOBIN 8.9 g/dl (13.5-18.0); MEAN CORPUSCULAR HEMOGLOBIN 32 pg (27-31)
[2021-06-13 09:57] LABS: ANISOCYTOSIS 2+; EOSINOPHIL 1 % (0-4); HYPOCHROMIA 1+; LYMPHOCYTE 21 % (20.0-51.0); METAMYELOCYTE 1 % (0-0); NEUTROPHILS 70 % (42.0-75.2); PLATELET ESTIMATE DECREASED (NORMAL)
[2021-06-13 10:25] LABS: PATHOLOGY DIFF REVIEW OK
[2021-06-14 08:28] VITALS: BP 110/67; PULSE 67; TEMP 98.4
[2021-06-15 08:44] VITALS: BP 110/52; PULSE 68; TEMP 99
[2021-06-16 08:21] VITALS: BP 104/65; PULSE 69; TEMP 98.1
[2021-06-17 08:35] VITALS: BP 128/67; PULSE 66; TEMP 98.4
[~2021-06-20] VITALS: Ht 167.6 cm; Wt 109.5 kg
[2021-06-20 08:25] VITALS: BP 150/54; PULSE 73; TEMP 98.5
[2021-06-20 09:04] LABS: MEAN CELL VOLUME 99 fl (80.0-100.0); MEAN CORPUSCULAR HGB CONC 32 g/dl (33.0-37.0); MEAN PLATELET VOLUME 10.3 fl (7.4-10.4); PLATELET COUNT 131 K/mm3 (130-400); RED BLOOD COUNT 3.11 M/mm3 (4.20-5.60); REDCELL DISTRIBUTION WIDTH-CV 16.9 % (11.5-14.5)
[2021-06-20 09:15] LABS: HEMATOCRIT 30.9 % (42.0-52.0); HEMOGLOBIN 9.9 g/dl (13.5-18.0); MEAN CORPUSCULAR HEMOGLOBIN 32 pg (27-31)
[2021-06-20 09:20] LABS: ALBUMIN 2.8 gm/dL (3.4-4.8); BILIRUBIN,TOTAL 0.6 mg/dL (0.2-1.2); CALCIUM 8.5 mg/dL (8.4-10.2); CREATININE, serum 1.64 mg/dL (0.72-1.25); POTASSIUM 4.2 mmol/L (3.5-4.5); TOTAL PROTEIN 6.8 gm/dL (6.2-8.1)
[2021-06-20 09:34] LABS: ANISOCYTOSIS 1+; BAND 9 % (0-10); BASOPHIL 1 % (0-2); HYPOCHROMIA 1+; LYMPHOCYTE 25 % (20.0-51.0); NEUTROPHILS 56 % (42.0-75.2); PLATELET ESTIMATE NORMAL (NORMAL)
[2021-06-20 09:58] LABS: C-REACTIVE PROTEIN 2.76 mg/dL (0.00-0.50)
--- NOTE | 2021-06-21 08:00 | NUR ---
Pt called to report pt will not be ommint ot EU today.Pt was weak and sittin patrick floor unable to get up.Pt reports her son, who is a PA is commin to assist pt and they will bring him to ED for evaluation.
[2021-06-21 15:13] VITALS: BP 143/59; PULSE 77; TEMP 98.5
--- NOTE | 2021-06-21 16:52 | NUR ---
Report from Thomas wintersr pt to be admitted to inpt.
[2021-07-12] MEDS ORDERED: PHENERGAN 25 TA25 MG PO (08:18)
[2021-07-18] MEDS ORDERED: PHARMASSURE ZIN50 MG PO (09:06)
[2021-07-20] MEDS ORDERED: CEFTIN500 MG PO (14:20)
[2021-07-22] MEDS ORDERED: MYCAMINE50 MG IV (12:21)
[2021-07-22] MEDS ORDERED: MYCAMINE100 MG IV (12:22)
[2021-07-31] MEDS ORDERED: TAMIFLU 75MG75 MG PO (09:36)
== END 2021-06-21 16:53 | disposition home or self-care (01) ==
LOC: EUO 08:00
PROVIDERS: Family Medicine; Internal Medicine Medical Oncology
DX: B37.9 Candidiasis, unspecified (principal); I12.9 Hypertensive chronic kidney disease with stage 1 through stage 4 chronic kidney disease, or unspecified chronic kidney disease; N18.9 Chronic kidney disease, unspecified; D64.9 Anemia, unspecified
CPT/HCPCS: J0348

== ENCOUNTER 2021-06-21 10:03 | Inpatient (IN) | payer MEDICARE, OTHER ==
[~2021-06-21] VITALS: Ht 167.6 cm; Wt 112.7 kg
[2021-06-21 11:00] LABS: BASO % 0.4 % (0.0-2.0); GRAN # 1.9 K/mm3 (1.4-6.5); GRAN % 83.4 % (42.2-75.2); LYMPH # 0.3 K/mm3 (1.2-3.4); LYMPH % 11.4 % (20.0-51.0); MEAN CELL VOLUME 96 fl (80.0-100.0); MEAN CORPUSCULAR HEMOGLOBIN 32 pg (27-31); MEAN CORPUSCULAR HGB CONC 33 g/dl (33.0-37.0); MEAN PLATELET VOLUME 10.3 fl (7.4-10.4); MONO # 0.1 K/mm3 (0.1-0.6); MONO % 4.4 % (1.7-9.3); PLATELET COUNT 106 K/mm3 (130-400); RED BLOOD COUNT 3.13 M/mm3 (4.20-5.60); REDCELL DISTRIBUTION WIDTH-CV 16.3 % (11.5-14.5)
[2021-06-21 11:06] LABS: HEMATOCRIT 29.9 % (42.0-52.0)
[2021-06-21 11:18] LABS: ALBUMIN 2.8 gm/dL (3.4-4.8); BILIRUBIN,TOTAL 0.8 mg/dL (0.2-1.2); C-REACTIVE PROTEIN 6.06 mg/dL (0.00-0.50); CALCIUM 8.5 mg/dL (8.4-10.2); CREATININE, serum 1.76 mg/dL (0.72-1.25); POTASSIUM 4.4 mmol/L (3.5-4.5); TOTAL PROTEIN 6.6 gm/dL (6.2-8.1)
[2021-06-21 11:27] LABS: TROPONIN-I 0.043 ng/mL (0.00-0.033)
[2021-06-21 14:37] LABS: COLLECTION METHOD CLEAN CATCH
[2021-06-21 14:52] LABS: BUDDING YEAST Present (NOT PRESENT); PH 5 (5-8); SQUAMOUS EPITHELIAL None Seen /hpf (0-10); URINE APPEARANCE Hazy (CLEAR/HAZY); URINE BACTERIA None Seen /hpf (NONE SEEN); URINE BILIRUBIN Negative (NEGATIVE); URINE BLOOD 1+ (NEGATIVE); URINE COLOR Yellow (YELLOW); URINE GLUCOSE 3+ (NEGATIVE); URINE KETONE Negative (NEGATIVE); URINE LEUKOCYTE ESTERASE Negative (NEGATIVE); URINE NITRATE Negative (NEGATIVE); URINE PROTEIN(semi-quant) 2+ (NEGATIVE); URINE UROBILINOGEN Negative (NEGATIVE)
[2021-06-21 17:51] VITALS: BP 170/60; PULSE 85; TEMP 98.7
[2021-06-21 17:55] VITALS: BP 155/65
--- NOTE | 2021-06-21 19:06 | NUR ---
PATIENT RESTING IN BED, VERY SLEEPY AND LETHARGIC. NO C/O OF PAIN, JUST OF GENERAL DISCOMFORT AND MALAISE. STATES PATIENT HAS LOST ALMOST +50LBS IN LAST 6 MONTHS. POOR APPETITE IN LAST COUPLE DAYS, NO INTAKE TODAY OR LAST NIGHT. VERY SENSITIVE FEET. PATIENT WOULD NOT ALLOW RN TO REMOVE KNEE-HIGH COMPRESSION SOCKS TO DO SKIN ASSESSMENT. FINE CRACKLES IN B/L BASES, COUGH, RUNNY NOSE AND CONGESION NOTED ON ASSESSMENT. ALERT AND ORIENTED X 4, AWAKES TO SPEECH.
--- NOTE | 2021-06-21 19:17 | NUR ---
PATIENT ADMISSION COMPLETED, MED REC COMPLETED. RESTING IN BED, EMESIS BASIN PROVIDED FOR NAUSEA. PUDDING AND WATER PROVIDED. CALL REYNAGA WITHIN REACH. AT BEDSIDE.
[2021-06-21 20:17] VITALS: BP 147/64; PULSE 88; TEMP 99.4
--- NOTE | 2021-06-21 23:17 | NUR ---
Received report from day shift. Patient alert and oriented x4. VSS. Patient here for confusion, increased weakness and bacterial fungal infection. Patient denies pain at this time. Assessment performed. PM meds administered. Patient was given snack, but appetite is decreased. Patient resting in bed with call light near.
[2021-06-21 23:52] VITALS: BP 147/59; PULSE 83; TEMP 98.2
[2021-06-22 05:29] VITALS: BP 142/53; PULSE 77; TEMP 97.8
--- NOTE | 2021-06-22 05:42 | NUR ---
Patient in own knee-high compression stockings, will not allow this nurse to remove to perform a thorough skin assessment. Patient would allow nurse to apply yellow gown, but refused yellow slippers.
[2021-06-22 06:57] LABS: HEMOGLOBIN 10.1 g/dl (13.5-18.0); MEAN CELL VOLUME 94 fl (80.0-100.0); MEAN CORPUSCULAR HEMOGLOBIN 32 pg (27-31); MEAN CORPUSCULAR HGB CONC 33 g/dl (33.0-37.0); MEAN PLATELET VOLUME 10.6 fl (7.4-10.4); PLATELET COUNT 98 K/mm3 (130-400); RED BLOOD COUNT 3.21 M/mm3 (4.20-5.60); REDCELL DISTRIBUTION WIDTH-CV 16.3 % (11.5-14.5)
[2021-06-22 07:01] LABS: HEMATOCRIT 30.3 % (42.0-52.0)
[2021-06-22 07:06] LABS: ALBUMIN 2.5 gm/dL (3.4-4.8); CALCIUM 8.5 mg/dL (8.4-10.2); CREATININE, serum 1.36 mg/dL (0.72-1.25); MAGNESIUM 1.8 mg/dL (1.6-2.6); PHOSPHOROUS 3.8 mg/dL (2.3-4.7); POTASSIUM 3.9 mmol/L (3.5-4.5)
[2021-06-22 07:31] LABS: BAND 11 % (0-10); LYMPHOCYTE 11 % (20.0-51.0); NEUTROPHILS 73 % (42.0-75.2)
[2021-06-22 07:45] VITALS: BP 119/50; PULSE 73; TEMP 97.3
--- NOTE | 2021-06-22 09:17 | NUR ---
PT RESTING IN BED. MORNING MEDICATIONS GIVEN. SHIFT ASSESSMENT COMPLETED. PT DENIES ANY PAIN. PT REFUSES TO REMOVE COMPRESSION STOCKING, STATES ITS VERY PAINFUL. AFTER DISCUSSION PT AGREES TO REMOVING STOCKING LATER THIS AFTERNOON SO THIS RN CAN VISULAIZE. DENIES NEEDS AT THIS TIME. WILL CONTINUE TO MONITOR.
--- NOTE | 2021-06-22 09:42 | NUR ---
reforestation worker met with patient to discuss discharge plan. Patients Matilda ([phone]) present at bedside. Intake completed by Matilda due to patient being nauseous. Patient lives at home with his in [place]. He has been independent with his ADL's only receiving help from his for his Picc line dressings. Picc line in place since November due to blood infection.Patient has access to a walker and a shower chair at home but does not currently use them. PCP is Dr. Coello and they utilizes [facility] for medications with no cost difficulty. Matilda reports that he does have a DPOA-HC established listing her as her agent. Matilda states that the patient does not currently have HH services set up. Discharge plan: Home; pending PT/OT richard
--- NOTE | 2021-06-22 10:07 | NUR ---
Phone call made to the patients Ashia to inform her of possible transfer to [place]. She states that she is at work but after her presentation she will plan on heading up to the hospital.
[2021-06-22 11:42] VITALS: BP 133/53; PULSE 72; TEMP 97.3
[2021-06-22 15:24] VITALS: BP 116/45; PULSE 69; TEMP 97.9
--- NOTE | 2021-06-22 17:36 | NUR ---
PT RESTING IN BED. STATES HIS APPETITE IS COMING BACK THIS EVENING. DENIES ANY NEEDS AT THIS TIME. WILL CONTINUE TO MONITOR.
[2021-06-22 20:26] VITALS: BP 132/52; PULSE 68; TEMP 98.5
[2021-06-23 00:01] VITALS: BP 134/47; PULSE 69; TEMP 97.8
[2021-06-23 03:49] VITALS: BP 126/56; PULSE 70; TEMP 98.1
--- NOTE | 2021-06-23 06:00 | NUR ---
ASSESSMENT COMPLETE FOR THIS SHIFT. PT RESTING IN BED WATCHING TV. PT COMPLAIN OF A HEADACHE. PT GIVEN TYLENOL FOR HIS HEADACHE. PT FELT THE TYLENOL WAS EFFECTIVE. PT DENIED PALPITATIONS, SOB, N,V,D OR DIZZINESS. PT HAD A PRETTY UNEVENTFUL NIGHT. PT EXPRESSED NO OTHER NEEDS AT THIS TIME. CALL LIGHT WITHIN REACH.
[2021-06-23 06:28] LABS: BASO % 0.4 % (0.0-2.0); EOS % 0.4 % (0.0-4.0); GRAN # 1.8 K/mm3 (1.4-6.5); GRAN % 67.9 % (42.2-75.2); LYMPH # 0.6 K/mm3 (1.2-3.4); LYMPH % 21.6 % (20.0-51.0); MEAN CELL VOLUME 96 fl (80.0-100.0); MEAN CORPUSCULAR HGB CONC 32 g/dl (33.0-37.0); MEAN PLATELET VOLUME 10.7 fl (7.4-10.4); MONO # 0.3 K/mm3 (0.1-0.6); MONO % 9.3 % (1.7-9.3); PLATELET COUNT 97 K/mm3 (130-400); RED BLOOD COUNT 2.82 M/mm3 (4.20-5.60); REDCELL DISTRIBUTION WIDTH-CV 16.3 % (11.5-14.5)
[2021-06-23 06:31] LABS: HEMATOCRIT 27.1 % (42.0-52.0); HEMOGLOBIN 8.7 g/dl (13.5-18.0); MEAN CORPUSCULAR HEMOGLOBIN 31 pg (27-31)
[2021-06-23 06:37] LABS: ALBUMIN 2.2 gm/dL (3.4-4.8); CALCIUM 8.2 mg/dL (8.4-10.2); CREATININE, serum 1.24 mg/dL (0.72-1.25); PHOSPHOROUS 3.1 mg/dL (2.3-4.7)
--- NOTE | 2021-06-23 08:45 | NUR ---
PT RESTING IN BED. MORNING MEDICATIONS GIVEN BY STUDENT RN. SHIFT ASSESSMENT COMPLETED. DENIES ANY PAIN. WILL CONTINUE TO MONITOR.
--- NOTE | 2021-06-23 08:58 | NUR ---
PT RESTING IN BED, AT BEDISE. MORNING MEDICATIONS GIVEN BY STUDENT RN. SHIFT ASSESSMENT COMPLETED. PT DENIES ANY PAIN OR NEEDS. IS REQUESTING TO TAKE A SHOWER THIS AM. STATES HE WILL LET THIS RN SEE HIS FEET WHEN HE GETS IN THE SHOWER. WILL CONTINUE TO MONITOR.
--- NOTE | 2021-06-23 09:29 | NUR ---
Initial visit; Patient thanked Sustainable Systems Analyst for looking in on him and offering God's blessings and to keep him in Sustainable Systems Analyst's prayers.
--- NOTE | 2021-06-23 13:38 | NUR ---
Follow-up visit; Nurse informed Test Technician that patient had received bad news after Test Technician visit this morning. Test Technician visited again asking how she could help and letting patient know of her availability to him. He thanked Test Technician and said he knew she would be available for him. has Issac in her prayers.
--- NOTE | 2021-06-23 15:44 | NUR ---
WAS ABLE TO VISUALIZE PT'S BLE. BLE HAD DISCOLORATION TO THE SHINS AND EDEMA AROUND THE TOES. SKIN IN DRY AND FLAKING.
[2021-06-23 15:54] VITALS: BP 142/53; PULSE 69; TEMP 98
[2021-06-23 19:17] VITALS: BP 118/44; PULSE 70; TEMP 98
[2021-06-23 20:37] LABS: CALCIUM 8.1 mg/dL (8.4-10.2); CREATININE, serum 1.21 mg/dL (0.72-1.25); POTASSIUM 3.9 mmol/L (3.5-4.5)
[2021-06-23 23:52] VITALS: BP 158/49; PULSE 68; TEMP 97.5
[2021-06-24 03:50] VITALS: BP 128/49; PULSE 70; TEMP 97.9
--- NOTE | 2021-06-24 06:30 | NUR ---
ASSESSMENT COMPLETE FOR THIS SHIFT. PT RESTING IN BED WATCHING TV. PT DENIED PAIN, PALPITATIONS, SOB, V,D OR DIZZINESS. PT COMPLAINED OF NAUSEA. PT GIVEN ZOFRAN FOR NAUSEA. PT FELT THE ZOFRAN WAS EFFECTIVE. PT EXPRESSED NO OTHER NEEDS AT THIS TIME. CALL LIGHT WITHIN REACH.
[2021-06-24 06:35] LABS: BASO % 0.4 % (0.0-2.0); EOS % 0.4 % (0.0-4.0); GRAN # 1.7 K/mm3 (1.4-6.5); LYMPH # 0.7 K/mm3 (1.2-3.4); LYMPH % 25.7 % (20.0-51.0); MEAN CELL VOLUME 98 fl (80.0-100.0); MEAN CORPUSCULAR HGB CONC 32 g/dl (33.0-37.0); MEAN PLATELET VOLUME 10.6 fl (7.4-10.4); MONO # 0.2 K/mm3 (0.1-0.6); MONO % 7.1 % (1.7-9.3); PLATELET COUNT 107 K/mm3 (130-400); REDCELL DISTRIBUTION WIDTH-CV 16.2 % (11.5-14.5)
[2021-06-24 06:38] LABS: HEMATOCRIT 27.3 % (42.0-52.0); HEMOGLOBIN 8.7 g/dl (13.5-18.0); MEAN CORPUSCULAR HEMOGLOBIN 31 pg (27-31)
[2021-06-24 06:47] LABS: ALBUMIN 2.3 gm/dL (3.4-4.8); CALCIUM 8.3 mg/dL (8.4-10.2); CREATININE, serum 1.21 mg/dL (0.72-1.25); MAGNESIUM 1.9 mg/dL (1.6-2.6); PHOSPHOROUS 2.9 mg/dL (2.3-4.7); POTASSIUM 3.7 mmol/L (3.5-4.5)
--- NOTE | 2021-06-24 07:50 | NUR ---
PT SITTING UP IN RECLINER. MORNING MEDICATIONS WILL BE GIVEN BY STUDENT RN. SHIFT ASSESSMENT COMPLETED. PT STATES HE FEELS GOOD THIS MORNING. PICC LINE FLUSHES AND HAS GOOD BLOOD RETURN. DENIES ANY PAIN OR NEEDS AT THIS TIME. WILL CONTINUE TO MONITOR.
--- NOTE | 2021-06-24 09:14 | NUR ---
Follow-up visit; Patient and his thanked Drawer Maker for looking in on him and leaving her card and a prayer card, wishing him well and God's blessings.
[2021-06-24 11:51] VITALS: BP 137/56; PULSE 72; TEMP 97.9
[2021-06-24] MEDS ORDERED: ERAXIS100 MG IV ×2 (12:22→12:32)
--- NOTE | 2021-06-24 13:10 | NUR ---
DISCHARGE INSTRUCTIONS GIVEN, ALL QUESTIONS ANSWERED, AT BEDSIDE. WILL ESCORT PT OFF OF UNIT.
--- NOTE | 2021-06-24 13:13 | NUR ---
ESCORTED PT DOWN TO VEHICLE. WILL D/C FROM SYSTEM.
[2021-07-12] MEDS ORDERED: PHENERGAN 25 TA25 MG PO (08:18)
[2021-07-18] MEDS ORDERED: PHARMASSURE ZIN50 MG PO (09:06)
[2021-07-20] MEDS ORDERED: CEFTIN500 MG PO (14:20)
[2021-07-22] MEDS ORDERED: MYCAMINE50 MG IV (12:21)
[2021-07-22] MEDS ORDERED: MYCAMINE100 MG IV (12:22)
== END 2021-06-24 13:14 | disposition home or self-care (01) | DRG 289 ==
LOC: COL.ER 10:03 → MEDICAL 16:03
PROVIDERS: Emergency Medicine; Physician Assistant; ADMIT Internal Medicine
DX: B37.6 Candidal endocarditis (principal); I13.0 Hypertensive heart and chronic kidney disease with heart failure and stage 1 through stage 4 chronic kidney disease, or unspecified chronic kidney disease; I50.32 Chronic diastolic (congestive) heart failure; R65.10 Systemic inflammatory response syndrome (SIRS) of non-infectious origin without acute organ dysfunction; G93.40 Encephalopathy, unspecified; E11.51 Type 2 diabetes mellitus with diabetic peripheral angiopathy without gangrene; E11.22 Type 2 diabetes mellitus with diabetic chronic kidney disease; I48.91 Unspecified atrial fibrillation; N18.9 Chronic kidney disease, unspecified; I25.2 Old myocardial infarction; I25.10 Atherosclerotic heart disease of native coronary artery without angina pectoris; D63.1 Anemia in chronic kidney disease; D69.6 Thrombocytopenia, unspecified; N40.0 Benign prostatic hyperplasia without lower urinary tract symptoms; Z79.82 Long term (current) use of aspirin; Z79.4 Long term (current) use of insulin; Z95.2 Presence of prosthetic heart valve; Z95.5 Presence of coronary angioplasty implant and graft; Z95.4 Presence of other heart-valve replacement; Z87.442 Personal history of urinary calculi; R79.89 Other specified abnormal findings of blood chemistry
CPT/HCPCS: 99223-AI; 99233-AI; 99239; J0348; J0696; J1815; J2405; J3010; J3370; J7030; J7040; J7050

== ENCOUNTER → 2021-07-02 | Outpatient (RCR) | payer MEDICARE, OTHER ==
[2021-06-27 08:56] VITALS: BP 103/41; PULSE 69; TEMP 98.1
[2021-06-27 12:27] LABS: MEAN CELL VOLUME 95 fl (80.0-100.0); MEAN CORPUSCULAR HGB CONC 33 g/dl (33.0-37.0); MEAN PLATELET VOLUME 10.9 fl (7.4-10.4); PLATELET COUNT 85 K/mm3 (130-400); RED BLOOD COUNT 3.01 M/mm3 (4.20-5.60); REDCELL DISTRIBUTION WIDTH-CV 15.9 % (11.5-14.5)
[2021-06-27 12:31] LABS: HEMATOCRIT 28.6 % (42.0-52.0); HEMOGLOBIN 9.3 g/dl (13.5-18.0); MEAN CORPUSCULAR HEMOGLOBIN 31 pg (27-31)
[2021-06-27 12:47] LABS: BAND 14 % (0-10); LYMPHOCYTE 30 % (20.0-51.0); NEUTROPHILS 52 % (42.0-75.2); PLATELET ESTIMATE DECREASED (NORMAL)
[2021-06-27 12:48] LABS: ALBUMIN 2.4 gm/dL (3.4-4.8); C-REACTIVE PROTEIN 12.62 mg/dL (0.00-0.50); CREATININE, serum 1.33 mg/dL (0.72-1.25); POTASSIUM 3.3 mmol/L (3.5-4.5); TOTAL PROTEIN 5.7 gm/dL (6.2-8.1)
[2021-06-27 12:51] LABS: ERYTHROCYTE SEDIMENTATION RATE 23 mm/hr (0-30)
[2021-06-27 12:55] LABS: BILIRUBIN,TOTAL 0.6 mg/dL (0.2-1.2)
[2021-06-28 08:36] VITALS: BP 135/63; PULSE 72; TEMP 97.8
[2021-06-29 09:19] VITALS: BP 115/44; PULSE 66; TEMP 97.7
[2021-06-30 08:42] VITALS: BP 128/60; PULSE 73
[2021-07-01 08:58] VITALS: BP 118/57; PULSE 70
[~2021-07-02] VITALS: Ht 167.6 cm; Wt 110.0 kg
[~2021-07-02] MED LIST changes: +CEFTIN500 MG PO; +MYCAMINE100 MG IV; +MYCAMINE50 MG IV; +PHARMASSURE ZIN50 MG PO; +PHENERGAN 25 TA25 MG PO; +TAMIFLU 75MG75 MG PO; -TYLENOL 325MG325 MG PO; +TYLENOL 500MG500 MG PO; +ZOFRAN 4MG T4 MG/TAB PO
[2021-07-02 08:34] VITALS: BP 134/71; PULSE 71; TEMP 97.5
== END | disposition still patient (30) ==
LOC: EUO
PROVIDERS: Family Medicine
DX: B37.6 Candidal endocarditis (principal)
CPT/HCPCS: J0348; J7050

== ENCOUNTER 2021-07-11 07:21 | Day surgery (SDC) | payer MEDICARE, OTHER ==
[~2021-07-11] VITALS: Ht 167.6 cm; Wt 102.7 kg
[~2021-07-11 07:21] MED LIST changes: -CEFTIN500 MG PO; -MYCAMINE100 MG IV; -MYCAMINE50 MG IV; -PHARMASSURE ZIN50 MG PO; -PHENERGAN 25 TA25 MG PO; -TAMIFLU 75MG75 MG PO; +TYLENOL 325MG325 MG PO; -TYLENOL 500MG500 MG PO; -ZOFRAN 4MG T4 MG/TAB PO
--- NOTE | 2021-07-11 07:45 | NUR ---
Patient informed RN that he has a single luman PICC line. Flushed PICC line with saline flush, able to get blood return. Unable to get blood return when connected with 10ml luer lock syringe to PICC. Flushed again with 10ml saline flush and able to aspirate blood but again unable to with empty 10ml syringe. Patient states he will notify [facility] during next infusion.
[2021-07-11 08:19] LABS: BASO % 0.5 % (0.0-2.0); EOS % 1.4 % (0.0-4.0); GRAN # 1.3 K/mm3 (1.4-6.5); LYMPH # 0.6 K/mm3 (1.2-3.4); LYMPH % 27.8 % (20.0-51.0); MEAN CELL VOLUME 92 fl (80.0-100.0); MEAN CORPUSCULAR HEMOGLOBIN 30 pg (27-31); MEAN CORPUSCULAR HGB CONC 33 g/dl (33.0-37.0); MEAN PLATELET VOLUME 10.4 fl (7.4-10.4); MONO # 0.2 K/mm3 (0.1-0.6); MONO % 8.8 % (1.7-9.3); PLATELET COUNT 113 K/mm3 (130-400); REDCELL DISTRIBUTION WIDTH-CV 15.5 % (11.5-14.5)
[2021-07-11 08:21] LABS: HEMATOCRIT 30.3 % (42.0-52.0)
[2021-07-11 08:30] VITALS: BP 127/58; PULSE 69; TEMP 97.9
[2021-07-11 10:10] VITALS: BP 102/47; PULSE 68; TEMP 97.9
[2021-07-11 10:25] VITALS: BP 111/90; PULSE 70
[2021-07-11 10:40] VITALS: BP 123/55; PULSE 71
--- NOTE | 2021-07-11 10:54 | NUR ---
1010: Patient arrived back into bay 8 from PACU. report received from MUNIRA Stanley. Patient to lay flat for 5 more minutes. Vital signs stable. at bedside. Patient reqesting water, pudding, and alysia crackers. 1015: Elavated patient's head to eat and drink. 1025: Patient vitally stable. Tolerated food and drink well. No complaint of pain or nausea. 1030: Went through discharge instructions with patient and patient's . Patient and both verbalized understanding to education. PICC line deaccessed. Patient to get dressed with assistance of . 1045: Patient escorted to Outpatient services via wheelchair for daily infusion. Patient left in the care of his .
[2021-07-11 11:40] VITALS: BP 102/47; PULSE 69
[2021-07-12] MEDS ORDERED: PHENERGAN 25 TA25 MG PO (08:18)
[2021-07-18] MEDS ORDERED: PHARMASSURE ZIN50 MG PO (09:06)
[2021-07-20] MEDS ORDERED: CEFTIN500 MG PO (14:20)
[2021-07-22] MEDS ORDERED: MYCAMINE50 MG IV (12:21)
[2021-07-22] MEDS ORDERED: MYCAMINE100 MG IV (12:22)
[2021-07-31] MEDS ORDERED: TAMIFLU 75MG75 MG PO (09:36)
== END 2021-07-11 10:45 | disposition home or self-care (01) ==
LOC: SDCO 07:21
PROVIDERS: Pathology Anatomic Pathology & Clinical Pathology
DX: D61.818 Other pancytopenia (principal); D64.9 Anemia, unspecified; K21.9 Gastro-esophageal reflux disease without esophagitis; E11.22 Type 2 diabetes mellitus with diabetic chronic kidney disease; I13.0 Hypertensive heart and chronic kidney disease with heart failure and stage 1 through stage 4 chronic kidney disease, or unspecified chronic kidney disease; N18.9 Chronic kidney disease, unspecified; Z95.5 Presence of coronary angioplasty implant and graft; Z79.899 Other long term (current) drug therapy; Z95.828 Presence of other vascular implants and grafts; Z95.2 Presence of prosthetic heart valve
CPT/HCPCS: J2704; J3010; J7030

== ENCOUNTER 2021-07-19 13:34 | Emergency (ER) | payer MEDICARE, OTHER ==
[~2021-07-19] VITALS: Ht 167.6 cm; Wt 104.5 kg
[~2021-07-19 13:34] MED LIST changes: +PHARMASSURE ZIN50 MG PO; +PHENERGAN 25 TA25 MG PO
[2021-07-19 13:46] VITALS: TEMP 98.1
[2021-07-19 14:26] LABS: MEAN CELL VOLUME 92 fl (80.0-100.0); MEAN CORPUSCULAR HGB CONC 33 g/dl (33.0-37.0); MEAN PLATELET VOLUME 10.7 fl (7.4-10.4); PLATELET COUNT 107 K/mm3 (130-400); REDCELL DISTRIBUTION WIDTH-CV 14.9 % (11.5-14.5)
[2021-07-19 14:29] LABS: HEMATOCRIT 29.5 % (42.0-52.0); HEMOGLOBIN 9.8 g/dl (13.5-18.0); MEAN CORPUSCULAR HEMOGLOBIN 31 pg (27-31)
[2021-07-19 14:45] LABS: ALANINE AMINOTRANSFERASE 181 U/L (0-55); ALBUMIN 2.5 gm/dL (3.4-4.8); ALKALINE PHOSPHATASE 151 U/L (40-150); ANION GAP 9 mmol/L (7-16); AST,SGOT 169 U/L (5-34); BILIRUBIN,TOTAL 0.9 mg/dL (0.2-1.2); BLOOD UREA NITROGEN 22 mg/dL (8-26); CALCIUM 8.1 mg/dL (8.4-10.2); CARBON DIOXIDE 25 mmol/L (23-31); CHLORIDE 98 mmol/L (98-107); CREATININE, serum 1.76 mg/dL (0.72-1.25); GLUCOSE 117 mg/dL (70-99); LIPASE 29 U/L (8-78); POTASSIUM 3.6 mmol/L (3.5-4.5); SODIUM 132 mmol/L (136-145); TOTAL PROTEIN 6.3 gm/dL (6.2-8.1)
[2021-07-19 14:52] LABS: TROPONIN-I < 0.010 ng/mL (0.00-0.033)
[2021-07-19 15:01] LABS: BAND 11 % (0-10); LYMPHOCYTE 13 % (20.0-51.0); NEUTROPHILS 71 % (42.0-75.2); PLATELET ESTIMATE DECREASED (NORMAL)
[2021-07-19 17:09] VITALS: BP 131/61; PULSE 77
[2021-07-19 19:19] LABS: COLLECTION METHOD CLEAN CATCH
[2021-07-19 19:50] LABS: BUDDING YEAST Present (NOT PRESENT); MUCOUS Present (NOT PRESENT); PH 6 (5-8); SQUAMOUS EPITHELIAL None Seen /hpf (0-10); URINE APPEARANCE Hazy (CLEAR/HAZY); URINE BACTERIA Rare /hpf (NONE SEEN); URINE BILIRUBIN Negative (NEGATIVE); URINE BLOOD Negative (NEGATIVE); URINE COLOR Amber (YELLOW); URINE GLUCOSE Negative (NEGATIVE); URINE KETONE Negative (NEGATIVE); URINE LEUKOCYTE ESTERASE Negative (NEGATIVE); URINE NITRATE Negative (NEGATIVE); URINE PROTEIN(semi-quant) 2+ (NEGATIVE); URINE UROBILINOGEN >=4.0 (NEGATIVE)
[2021-07-20] MEDS ORDERED: CEFTIN500 MG PO (14:20)
[2021-07-22] MEDS ORDERED: MYCAMINE50 MG IV (12:21)
[2021-07-22] MEDS ORDERED: MYCAMINE100 MG IV (12:22)
[2021-07-31] MEDS ORDERED: TAMIFLU 75MG75 MG PO (09:36)
== END 2021-07-19 17:10 | disposition home or self-care (01) ==
LOC: COL.ER 13:34
PROVIDERS: Nurse Practitioner Primary Care
DX: R53.81 Other malaise (principal); B37.7 Candidal sepsis
CPT/HCPCS: J7030

== ENCOUNTER 2021-08-01 11:24 | Emergency (ER) | payer MEDICARE, OTHER ==
[~2021-08-01] VITALS: Ht 167.6 cm; Wt 104.5 kg
[~2021-08-01 11:24] MED LIST changes: +CEFTIN500 MG PO; +MYCAMINE100 MG IV; +MYCAMINE50 MG IV; +TAMIFLU 75MG75 MG PO; -TYLENOL 325MG325 MG PO; +TYLENOL 500MG500 MG PO
[2021-08-01 11:32] VITALS: TEMP 97.7
[2021-08-01 12:12] LABS: COLLECTION METHOD CLEAN CATCH
[2021-08-01 12:13] LABS: MEAN CELL VOLUME 94 fl (80.0-100.0); MEAN CORPUSCULAR HGB CONC 33 g/dl (33.0-37.0); PLATELET COUNT 104 K/mm3 (130-400); RED BLOOD COUNT 3.16 M/mm3 (4.20-5.60); REDCELL DISTRIBUTION WIDTH-CV 16.8 % (11.5-14.5)
[2021-08-01 12:16] LABS: HEMATOCRIT 29.6 % (42.0-52.0); HEMOGLOBIN 9.8 g/dl (13.5-18.0); MEAN CORPUSCULAR HEMOGLOBIN 31 pg (27-31)
[2021-08-01 12:24] LABS: AMORPHOUS CRYSTAL Present (NOT PRESENT); MUCOUS Present (NOT PRESENT); PH 5 (5-8); SQUAMOUS EPITHELIAL None Seen /hpf (0-10); URINE APPEARANCE Hazy (CLEAR/HAZY); URINE BACTERIA Rare /hpf (NONE SEEN); URINE BILIRUBIN Negative (NEGATIVE); URINE BLOOD 2+ (NEGATIVE); URINE COLOR Yellow (YELLOW); URINE GLUCOSE 2+ (NEGATIVE); URINE KETONE Negative (NEGATIVE); URINE LEUKOCYTE ESTERASE Negative (NEGATIVE); URINE NITRATE Negative (NEGATIVE); URINE PROTEIN(semi-quant) Negative (NEGATIVE); URINE UROBILINOGEN Negative (NEGATIVE)
[2021-08-01 12:27] LABS: ALBUMIN 2.4 gm/dL (3.4-4.8); BILIRUBIN,TOTAL 0.8 mg/dL (0.2-1.2); CREATININE, serum 1.73 mg/dL (0.72-1.25); POTASSIUM 3.6 mmol/L (3.5-4.5); TOTAL PROTEIN 6.4 gm/dL (6.2-8.1)
[2021-08-01 12:33] LABS: TROPONIN-I 0.016 ng/mL (0.00-0.033)
[2021-08-01 12:57] LABS: ANISOCYTOSIS 1+; LYMPHOCYTE 32 % (20.0-51.0); NEUTROPHILS 62 % (42.0-75.2); PLATELET ESTIMATE DECREASED (NORMAL)
[2021-08-01 14:05] VITALS: BP 137/68; PULSE 69
[2021-08-03] MEDS ORDERED: ZOFRAN 4MG T4 MG/TAB PO (12:27)
[2021-08-03] MEDS ORDERED: AMOXICILLIN 50500 MG PO (12:28)
[2021-08-03] MEDS ORDERED: TRESIBA FL200 UNIT/1 SQ (12:28)
== END 2021-08-01 14:05 | disposition home or self-care (01) ==
LOC: COL.ER 11:24
PROVIDERS: Emergency Medicine
DX: I95.9 Hypotension, unspecified (principal); D64.9 Anemia, unspecified; R74.01 Elevation of levels of liver transaminase levels; R79.89 Other specified abnormal findings of blood chemistry; Z95.4 Presence of other heart-valve replacement; Z95.5 Presence of coronary angioplasty implant and graft
CPT/HCPCS: J7120

== ENCOUNTER 2021-08-02 11:00 | Outpatient (RCR) | payer MEDICARE, OTHER ==
[2021-07-03 08:40] VITALS: BP 119/55; PULSE 64; TEMP 97.9
[2021-07-04 08:30] VITALS: BP 94/67; PULSE 68; TEMP 98.3
[2021-07-04 08:58] LABS: MEAN CELL VOLUME 96 fl (80.0-100.0); MEAN CORPUSCULAR HGB CONC 33 g/dl (33.0-37.0); MEAN PLATELET VOLUME 10.7 fl (7.4-10.4); PLATELET COUNT 108 K/mm3 (130-400); RED BLOOD COUNT 3.02 M/mm3 (4.20-5.60); REDCELL DISTRIBUTION WIDTH-CV 15.5 % (11.5-14.5)
[2021-07-04 09:05] LABS: HEMATOCRIT 28.9 % (42.0-52.0); HEMOGLOBIN 9.4 g/dl (13.5-18.0); MEAN CORPUSCULAR HEMOGLOBIN 31 pg (27-31)
[2021-07-04 09:18] LABS: ALBUMIN 2.7 gm/dL (3.4-4.8); BILIRUBIN,TOTAL 0.6 mg/dL (0.2-1.2); C-REACTIVE PROTEIN 1.61 mg/dL (0.00-0.50); CALCIUM 8.2 mg/dL (8.4-10.2); CREATININE, serum 1.37 mg/dL (0.72-1.25); POTASSIUM 3.2 mmol/L (3.5-4.5); TOTAL PROTEIN 6.2 gm/dL (6.2-8.1)
[2021-07-04 09:31] LABS: BAND 12 % (0-10); BASOPHIL 2 % (0-2); LYMPHOCYTE 25 % (20.0-51.0); NEUTROPHILS 55 % (42.0-75.2); PLATELET ESTIMATE DECREASED (NORMAL); POLYCHROMASIA 1+
[2021-07-04 09:41] LABS: ERYTHROCYTE SEDIMENTATION RATE 25 mm/hr (0-30)
[2021-07-05 08:19] VITALS: BP 124/58; PULSE 73; TEMP 98.2
[2021-07-06 08:44] VITALS: BP 114/36; PULSE 73; TEMP 98.3
[2021-07-07 08:48] VITALS: BP 115/56; PULSE 73; TEMP 98.1
[2021-07-08 08:40] VITALS: BP 130/67; PULSE 77; TEMP 98.3
[2021-07-10 08:46] VITALS: BP 119/78; PULSE 88; TEMP 98
[2021-07-11 11:17] VITALS: BP 112/41; PULSE 70; TEMP 97.6
[2021-07-11 11:39] LABS: ALBUMIN 2.5 gm/dL (3.4-4.8); BILIRUBIN,TOTAL 0.7 mg/dL (0.2-1.2); C-REACTIVE PROTEIN 3.77 mg/dL (0.00-0.50); CALCIUM 8.1 mg/dL (8.4-10.2); CREATININE, serum 1.79 mg/dL (0.72-1.25); POTASSIUM 3.5 mmol/L (3.5-4.5); TOTAL PROTEIN 5.9 gm/dL (6.2-8.1)
--- NOTE | 2021-07-11 14:20 | NUR ---
Pt assisted out to 's car by wheelchair. Bandaids over bone marrow bx sites remain clean, dry and intact. Pt and state they had recieved post procedure orders in ambulatory dept prior to coming to [facility] infusion.
[2021-07-12 08:15] VITALS: BP 112/58; PULSE 74; TEMP 98.2
[2021-07-13 12:05] VITALS: BP 114/48; PULSE 72; TEMP 98.7
[2021-07-14 09:21] VITALS: BP 119/63; PULSE 71; TEMP 98.9
[2021-07-15 08:42] VITALS: BP 113/67; PULSE 72; TEMP 98.4
[2021-07-18 08:42] LABS: MEAN CELL VOLUME 95 fl (80.0-100.0); MEAN CORPUSCULAR HGB CONC 33 g/dl (33.0-37.0); MEAN PLATELET VOLUME 10.9 fl (7.4-10.4); PLATELET COUNT 101 K/mm3 (130-400); RED BLOOD COUNT 3.16 M/mm3 (4.20-5.60); REDCELL DISTRIBUTION WIDTH-CV 15.2 % (11.5-14.5)
[2021-07-18 08:48] LABS: HEMOGLOBIN 9.8 g/dl (13.5-18.0); MEAN CORPUSCULAR HEMOGLOBIN 31 pg (27-31)
[2021-07-18 08:49] VITALS: BP 113/76; PULSE 71; TEMP 98
[2021-07-18 08:59] LABS: ALBUMIN 2.5 gm/dL (3.4-4.8); BILIRUBIN,TOTAL 0.7 mg/dL (0.2-1.2); C-REACTIVE PROTEIN 2.73 mg/dL (0.00-0.50); CALCIUM 8.1 mg/dL (8.4-10.2); CREATININE, serum 1.86 mg/dL (0.72-1.25); POTASSIUM 3.6 mmol/L (3.5-4.5); TOTAL PROTEIN 6.2 gm/dL (6.2-8.1)
[2021-07-18 09:12] LABS: BAND 12 % (0-10); LYMPHOCYTE 25 % (20.0-51.0); NEUTROPHILS 61 % (42.0-75.2)
[2021-07-18 09:15] LABS: PLATELET ESTIMATE DECREASED (NORMAL)
[2021-07-18 09:16] LABS: ERYTHROCYTE SEDIMENTATION RATE 21 mm/hr (0-30); POLYCHROMASIA 1+
[2021-07-19 17:22] VITALS: BP 142/72; PULSE 76; TEMP 98.4
--- NOTE | 2021-07-19 19:20 | NUR ---
ua sent to lab that was due in ER
[2021-07-20 14:46] VITALS: BP 103/66; PULSE 79; TEMP 98.7
[2021-07-21 13:30] VITALS: BP 106/68; PULSE 81; TEMP 98
[2021-07-22 12:38] VITALS: BP 104/71; PULSE 70; TEMP 98.2
[2021-07-25 13:13] VITALS: BP 99/58; PULSE 74; TEMP 98.3
[2021-07-25 13:20] LABS: HEMOGLOBIN 10.2 g/dl (13.5-18.0); MEAN CELL VOLUME 94 fl (80.0-100.0); MEAN CORPUSCULAR HEMOGLOBIN 30 pg (27-31); MEAN CORPUSCULAR HGB CONC 32 g/dl (33.0-37.0); MEAN PLATELET VOLUME 10.9 fl (7.4-10.4); PLATELET COUNT 80 K/mm3 (130-400); RED BLOOD COUNT 3.35 M/mm3 (4.20-5.60); REDCELL DISTRIBUTION WIDTH-CV 15.8 % (11.5-14.5)
[2021-07-25 13:24] LABS: HEMATOCRIT 31.5 % (42.0-52.0)
[2021-07-25 13:34] LABS: ALBUMIN 2.5 gm/dL (3.4-4.8); BILIRUBIN,TOTAL 0.9 mg/dL (0.2-1.2); C-REACTIVE PROTEIN 2.55 mg/dL (0.00-0.50); CREATININE, serum 2.13 mg/dL (0.72-1.25); POTASSIUM 3.6 mmol/L (3.5-4.5); TOTAL PROTEIN 6.3 gm/dL (6.2-8.1)
[2021-07-25 13:41] LABS: ERYTHROCYTE SEDIMENTATION RATE 21 mm/hr (0-30)
[2021-07-25 14:24] LABS: BAND 6 % (0-10); BASOPHIL 1 % (0-2)
[2021-07-25 14:25] LABS: ANISOCYTOSIS 1+; HYPOCHROMIA 1+; LYMPHOCYTE 26 % (20.0-51.0); NEUTROPHILS 62 % (42.0-75.2); PLATELET ESTIMATE DECREASED (NORMAL)
[2021-07-26 09:28] VITALS: BP 83/47; PULSE 68; TEMP 98.5
[2021-07-27 09:24] VITALS: BP 101/60; PULSE 79; TEMP 98.1
[2021-07-28 11:15] VITALS: BP 132/74; PULSE 76; TEMP 97.5
[2021-07-29 11:40] VITALS: BP 92/62; PULSE 83; TEMP 98.5
[2021-07-30 09:34] VITALS: BP 87/53; PULSE 71; TEMP 98.7
[2021-07-31 09:32] VITALS: BP 94/60; PULSE 71; TEMP 98
[2021-08-01 09:10] VITALS: BP 79/48; PULSE 62; TEMP 98.3
--- NOTE | 2021-08-01 11:30 | NUR ---
Pt BP 69/38 after changing cuff and retaking throughout visit. Called Dr. Blackmon software test automation engineer for [facility] to notify of pts low BP. Dr. Blackmon gave direction to take pt to ED for closer evaluation. This nurse stayed with pt until ED nurse was able to place him in a room. Reported to ED nurse findings and phone call to Dr. Blackmon.
[~2021-08-02] VITALS: Ht 167.6 cm; Wt 104.9 kg
[2021-08-02 11:20] VITALS: BP 134/78; PULSE 70; TEMP 98.4
[2021-08-02 11:53] LABS: MEAN CELL VOLUME 95 fl (80.0-100.0); MEAN CORPUSCULAR HGB CONC 32 g/dl (33.0-37.0); MEAN PLATELET VOLUME 10.7 fl (7.4-10.4); PLATELET COUNT 93 K/mm3 (130-400); RED BLOOD COUNT 2.91 M/mm3 (4.20-5.60); REDCELL DISTRIBUTION WIDTH-CV 16.8 % (11.5-14.5)
[2021-08-02 11:57] LABS: HEMATOCRIT 27.6 % (42.0-52.0); HEMOGLOBIN 8.9 g/dl (13.5-18.0); MEAN CORPUSCULAR HEMOGLOBIN 31 pg (27-31)
[2021-08-02 12:17] LABS: ERYTHROCYTE SEDIMENTATION RATE 22 mm/hr (0-30)
[2021-08-02 12:22] LABS: ANISOCYTOSIS 1+; BAND 8 % (0-10); LYMPHOCYTE 36 % (20.0-51.0); PLATELET ESTIMATE DECREASED (NORMAL)
[2021-08-02 12:25] LABS: NEUTROPHILS 44 % (42.0-75.2)
[2021-08-02 12:32] LABS: ALBUMIN 2.3 gm/dL (3.4-4.8); BILIRUBIN,TOTAL 0.8 mg/dL (0.2-1.2); C-REACTIVE PROTEIN 1.21 mg/dL (0.00-0.50); CALCIUM 7.8 mg/dL (8.4-10.2); CREATININE, serum 1.67 mg/dL (0.72-1.25); POTASSIUM 3.6 mmol/L (3.5-4.5); TOTAL PROTEIN 6.1 gm/dL (6.2-8.1)
[2021-08-03] MEDS ORDERED: ZOFRAN 4MG T4 MG/TAB PO (12:27)
[2021-08-03] MEDS ORDERED: TRESIBA FL200 UNIT/1 SQ (12:28)
[2021-08-03] MEDS ORDERED: AMOXICILLIN 50500 MG PO (12:28)
[2021-08-12] MEDS ORDERED: LASIX 40MG TABL40 MG PO (10:03)
== END 2021-08-02 17:24 | disposition home or self-care (01) ==
LOC: EUO 11:00
PROVIDERS: Family Medicine; Internal Medicine Medical Oncology
DX: B37.6 Candidal endocarditis (principal)
CPT/HCPCS: J0348; J2248; J7050

== ENCOUNTER 2021-08-21 08:16 | Outpatient (RCR) | payer MEDICARE, OTHER ==
[2021-08-03 14:03] VITALS: BP 116/68; PULSE 80
[2021-08-04 11:30] VITALS: BP 111/69; PULSE 72; TEMP 97.9
[2021-08-05 11:42] VITALS: BP 99/58; PULSE 70; TEMP 98.7
[2021-08-06 09:05] VITALS: BP 116/69; PULSE 72; TEMP 98
[2021-08-07 09:00] VITALS: BP 118/57; PULSE 76; TEMP 98.6
[2021-08-08 13:00] VITALS: BP 123/64; PULSE 76; TEMP 98.3
[2021-08-08 13:21] LABS: MEAN CELL VOLUME 93 fl (80.0-100.0); MEAN CORPUSCULAR HGB CONC 33 g/dl (33.0-37.0); MEAN PLATELET VOLUME 10.7 fl (7.4-10.4); PLATELET COUNT 95 K/mm3 (130-400); RED BLOOD COUNT 3.03 M/mm3 (4.20-5.60); REDCELL DISTRIBUTION WIDTH-CV 17.2 % (11.5-14.5)
[2021-08-08 13:23] LABS: HEMATOCRIT 28.3 % (42.0-52.0); HEMOGLOBIN 9.3 g/dl (13.5-18.0); MEAN CORPUSCULAR HEMOGLOBIN 31 pg (27-31)
[2021-08-08 13:31] LABS: ALBUMIN 2.3 gm/dL (3.4-4.8); BILIRUBIN,TOTAL 0.9 mg/dL (0.2-1.2); C-REACTIVE PROTEIN 2.15 mg/dL (0.00-0.50); CALCIUM 8.2 mg/dL (8.4-10.2); CREATININE, serum 1.68 mg/dL (0.72-1.25); POTASSIUM 3.9 mmol/L (3.5-4.5); TOTAL PROTEIN 6.4 gm/dL (6.2-8.1)
[2021-08-08 13:35] LABS: ERYTHROCYTE SEDIMENTATION RATE 34 mm/hr (0-30)
[2021-08-08 13:42] LABS: BAND 4 % (0-10); EOSINOPHIL 2 % (0-4); LYMPHOCYTE 30 % (20.0-51.0); NEUTROPHILS 56 % (42.0-75.2); PLATELET ESTIMATE DECREASED (NORMAL)
[2021-08-08 21:49] LABS: IMMUNOGLOBULIN A 372 mg/dL (101-645); IMMUNOGLOBULIN G 1632 mg/dL (540-1822); IMMUNOGLOBULIN M, QUANTITATIVE 213 mg/dL (22-240)
[2021-08-09 11:33] VITALS: BP 96/63; PULSE 65; TEMP 98.5
[2021-08-10 11:37] VITALS: BP 112/69; PULSE 72; TEMP 98.5
[2021-08-11 09:19] VITALS: BP 95/57; PULSE 71; TEMP 98.5
[2021-08-12 10:05] VITALS: BP 127/73; PULSE 75; TEMP 98.5
[2021-08-13 09:29] VITALS: BP 87/54; PULSE 70; TEMP 98.2
[2021-08-14 09:42] VITALS: BP 85/45; PULSE 74; TEMP 98.3
[2021-08-15 11:53] LABS: MEAN CELL VOLUME 95 fl (80.0-100.0); MEAN CORPUSCULAR HGB CONC 33 g/dl (33.0-37.0); MEAN PLATELET VOLUME 9.9 fl (7.4-10.4); PLATELET COUNT 110 K/mm3 (130-400); RED BLOOD COUNT 2.84 M/mm3 (4.20-5.60); REDCELL DISTRIBUTION WIDTH-CV 17.4 % (11.5-14.5)
[2021-08-15 11:58] LABS: HEMOGLOBIN 8.8 g/dl (13.5-18.0); MEAN CORPUSCULAR HEMOGLOBIN 31 pg (27-31)
[2021-08-15 12:12] LABS: MAGNESIUM 1.4 mg/dL (1.6-2.6); PHOSPHOROUS 3.5 mg/dL (2.3-4.7)
[2021-08-15 12:15] LABS: ALBUMIN 2.2 gm/dL (3.4-4.8); BILIRUBIN,TOTAL 0.8 mg/dL (0.2-1.2); C-REACTIVE PROTEIN 2.47 mg/dL (0.00-0.50); CALCIUM 8.2 mg/dL (8.4-10.2); CREATININE, serum 1.86 mg/dL (0.72-1.25); POTASSIUM 3.8 mmol/L (3.5-4.5); TOTAL PROTEIN 6.2 gm/dL (6.2-8.1)
[2021-08-15 13:18] LABS: ANISOCYTOSIS 2+; BAND 2 % (0-10); BASOPHIL 2 % (0-2); LYMPHOCYTE 26 % (20.0-51.0); MICROCYTOSIS 1+; NEUTROPHILS 66 % (42.0-75.2); PLATELET ESTIMATE DECREASED (NORMAL)
[2021-08-15 13:19] LABS: OVALOCYTES 1+; POIKILOCYTOSIS 1+
[2021-08-15 13:35] VITALS: BP 98/60; PULSE 72; TEMP 98.3
[2021-08-16 11:45] VITALS: BP 110/69; PULSE 75; TEMP 7.4
[2021-08-17 09:34] VITALS: BP 97/53; PULSE 69; TEMP 97.9
--- NOTE | 2021-08-17 09:50 | NUR ---
Pt tolerated infusion without complication, Pt escorted via wheelchair to exit where picked pt up.
[2021-08-18 11:20] VITALS: BP 115/83; PULSE 79; TEMP 97.8
[2021-08-19 11:21] VITALS: BP 100/60; PULSE 77; TEMP 98.2
[2021-08-20 08:33] VITALS: BP 150/76; PULSE 74; TEMP 98.2
[~2021-08-21] VITALS: Ht 167.6 cm; Wt 101.0 kg
[~2021-08-21 08:16] MED LIST changes: +ZOFRAN 4MG T4 MG/TAB PO
[2021-08-22] MEDS ORDERED: CEFTIN500 MG PO (12:07)
[2021-08-22 12:22] VITALS: BP 102/64; PULSE 55; TEMP 98
[2021-08-22 12:40] LABS: MEAN CELL VOLUME 93 fl (80.0-100.0); MEAN CORPUSCULAR HGB CONC 34 g/dl (33.0-37.0); MEAN PLATELET VOLUME 11.8 fl (7.4-10.4); PLATELET COUNT 62 K/mm3 (130-400); RED BLOOD COUNT 3.06 M/mm3 (4.20-5.60); REDCELL DISTRIBUTION WIDTH-CV 17.1 % (11.5-14.5)
[2021-08-22 12:56] LABS: ALBUMIN 2.1 gm/dL (3.4-4.8); BILIRUBIN,TOTAL 0.8 mg/dL (0.2-1.2); C-REACTIVE PROTEIN 6.24 mg/dL (0.00-0.50); CALCIUM 8.1 mg/dL (8.4-10.2); CREATININE, serum 2.69 mg/dL (0.72-1.25); POTASSIUM 4.2 mmol/L (3.5-4.5); TOTAL PROTEIN 6.2 gm/dL (6.2-8.1)
[2021-08-22 13:14] LABS: HEMATOCRIT 28.4 % (42.0-52.0); HEMOGLOBIN 9.6 g/dl (13.5-18.0); MEAN CORPUSCULAR HEMOGLOBIN 31 pg (27-31)
[2021-08-22 13:16] LABS: ERYTHROCYTE SEDIMENTATION RATE 24 mm/hr (0-30)
[2021-08-23 14:13] VITALS: BP 100/60; PULSE 60
--- NOTE | 2021-08-25 10:08 | NUR ---
Pt called this nurse to report pt will not come today for infusion.Reports pt has had vomiting during night.per 's report pt has visited with ID about possibility of stopping infusions.
[2021-08-27] MEDS ORDERED: ULTRAM 50MG TAB50 MG PO (04:07)
--- NOTE | 2021-08-29 08:10 | NUR ---
Pt admitted as an inpatient.
== END 2021-08-29 08:10 | disposition still patient (30) ==
LOC: EUO 08-22 11:00
PROVIDERS: Family Medicine; Internal Medicine Medical Oncology
DX: B37.6 Candidal endocarditis (principal)
CPT/HCPCS: J2248

== ENCOUNTER 2021-08-27 00:36 | Inpatient (IN) | payer MEDICARE, OTHER ==
[~2021-08-27] VITALS: Ht 167.6 cm; Wt 99.5 kg
[2021-08-27 02:01] LABS: MEAN CELL VOLUME 94 fl (80.0-100.0); MEAN CORPUSCULAR HGB CONC 33 g/dl (33.0-37.0); MEAN PLATELET VOLUME 11.3 fl (7.4-10.4); PLATELET COUNT 82 K/mm3 (130-400); RED BLOOD COUNT 2.83 M/mm3 (4.20-5.60); REDCELL DISTRIBUTION WIDTH-CV 16.6 % (11.5-14.5)
[2021-08-27 02:05] LABS: HEMATOCRIT 26.7 % (42.0-52.0); HEMOGLOBIN 8.8 g/dl (13.5-18.0); MEAN CORPUSCULAR HEMOGLOBIN 31 pg (27-31)
[2021-08-27 02:25] LABS: ALBUMIN 2.2 gm/dL (3.4-4.8); BILIRUBIN,TOTAL 0.9 mg/dL (0.2-1.2); CALCIUM 8.1 mg/dL (8.4-10.2); CREATININE, serum 3.66 mg/dL (0.72-1.25); POTASSIUM 4.3 mmol/L (3.5-4.5)
[2021-08-27 02:31] LABS: TROPONIN-I 0.019 ng/mL (0.00-0.033)
[2021-08-27 03:05] LABS: BAND 4 % (0-10); LYMPHOCYTE 28 % (20.0-51.0); NEUTROPHILS 62 % (42.0-75.2); PLATELET ESTIMATE DECREASED (NORMAL)
[2021-08-27 03:06] LABS: ANISOCYTOSIS 1+; HYPOCHROMIA 2+
[2021-08-27] MEDS ORDERED: ULTRAM 50MG TAB50 MG PO (04:07)
[2021-08-27 07:03] LABS: MEAN CELL VOLUME 94 fl (80.0-100.0); MEAN CORPUSCULAR HGB CONC 33 g/dl (33.0-37.0); MEAN PLATELET VOLUME 11.6 fl (7.4-10.4); PLATELET COUNT 83 K/mm3 (130-400); RED BLOOD COUNT 2.77 M/mm3 (4.20-5.60); REDCELL DISTRIBUTION WIDTH-CV 16.3 % (11.5-14.5)
--- NOTE | 2021-08-27 07:07 | NUR ---
PATIENT ADMITTED TO ROOM 308 AROUND 0500 ORIENTED TO CALL LIGHT AND ROOM. HOSPITALIST ASHA AT BEDSIDE. STARTED FLUIDS ORDERED, PATIENT IS DIABETIC BG 120'S WIHT BLOOD WORK. NO PAIN NOTED AT THIS TIME. NO S/S OF SOB OR DISTRESS NOTED. PICC LINE NOTED TO LUE IN PLACE DUE TO PRISON ANTIBIOTIC THERAPY. BRUISING NOTED TO R FINGERS, EDEMA, AND DISCOLORATION PATIENT STATED HE WAS TAKING ANTIBIOTICS CEFTIN. HOSPITALIST TO REVIEW MEDICATION. PATIENT DID STATE THAT HIS PRISON ANTIBIOTIC THERPAY WAS ON HOLD FOR FURTHER EVAL FOR ENDOCARDITIS. PENDING VOID AND INFORMED DAY SHIFT NURSE. PATIENT DID STATE THAT HE HAS HAD DECREASE APPETITE AND WEIGHT LOSS WELL. EDEMA NOTED TO BILAT LE +3. WILL CONTINUE TO MONITOR
[2021-08-27 07:12] LABS: HEMATOCRIT 25.9 % (42.0-52.0); HEMOGLOBIN 8.5 g/dl (13.5-18.0); MEAN CORPUSCULAR HEMOGLOBIN 31 pg (27-31)
[2021-08-27 07:37] LABS: CALCIUM 7.9 mg/dL (8.4-10.2); CREATININE, serum 3.51 mg/dL (0.72-1.25); MAGNESIUM 1.7 mg/dL (1.6-2.6); POTASSIUM 4.2 mmol/L (3.5-4.5)
[2021-08-27 08:22] LABS: BAND 3 % (0-10)
[2021-08-27 08:23] LABS: ANISOCYTOSIS 1+; HYPOCHROMIA 1+; LYMPHOCYTE 42 % (20.0-51.0); NEUTROPHILS 48 % (42.0-75.2); PLATELET ESTIMATE DECREASED (NORMAL)
[2021-08-27 08:31] VITALS: BP 102/57; PULSE 71; TEMP 97.8
--- NOTE | 2021-08-27 10:59 | NUR ---
Follow-up visit; Patient and his state he is not doing well but knows his Physicians are doing what is possible to help. Issac thanked Strike Off Machine Operator for looking in on him again and wishing him well and offering "healing prayer."
[2021-08-27 12:21] VITALS: BP 93/50; PULSE 64; TEMP 97.7
[2021-08-27 15:55] VITALS: BP 112/57; PULSE 72; TEMP 98.2
--- NOTE | 2021-08-27 16:18 | NUR ---
Stress Engineer met with patient and spouse Matilda ([phone]) at bedside. Patient is alert and oriented and gives verbal consent to speak to him for intake assessment/discharge planning with his spouse at bedside "of course!" He informs they live together in a two story house, and they currently reside now on only the main floor. There is only 1 step to enter the home that he has formerly had no difficulty navigating. He has been using a walker the last week to assist with ambulation because he feels too weak to ambulate independently. 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 He states he has not been eating the past couple months, and he has lost 80 pounds in the last year. His adult son put up handrails in the shower for him. He states his spouse is the "meat and potatoes" of their home, completing the IADLs, and assisting him now with his ADLS, including showering and dressing. "I've never been this disabled." He states his primary care physician is Serina Coello, and he obtains his medications at [facility] without any difficulties. His spouse informs having contacted [facility] on Sunday and left a message requesting call back "to establish home health at a minimum." She is agreeable to a referral for HH services at this time. She will also explore other options for HH as well as SNF and/or LTC placements through the Medicare.org website noting they may place additional referrals as recommended/desired. Spouse does have a copy of patient DPOA-HC and this is placed in the patient medical record. She confirms with patient that this document remains accurate despite having been completed in 2001. She is open to education regarding service options as the medical team determines pending patient hospital course and recovery. Both patient and spouse express no further concerns at this time, and spouse would like to continue to work with social sciences professor on the discharge plan. Stress Engineer continues to follow. *Discharge plan pending PT/OT evaluation and medical recommendations. Spouse wants to initiate Home Health services "at a minimum."* [facility] HH referral placed at patient and spouse request.
[2021-08-27 20:42] VITALS: BP 101/52; PULSE 100; TEMP 97.6
[2021-08-27 23:26] VITALS: BP 104/47; PULSE 68; TEMP 98.1
--- NOTE | 2021-08-27 23:31 | NUR ---
AAOX3 ABLE TO MAKE NEEDS KNOWN PATIENT CONTINUES WITH DECREASE APPETITE WITHELD LEVEMIR DUE TO PATIENT DECREASE IN BLOOD GLUCOSE LEVELS. PATIENT DOESN'T HAVE ANY NAUSEA WHEN ASKED. PALATIVE CARE CONSULT PENDING. X1 ASSIST PATIENT CONTINUES TO HAVE EDEMA +3 TO BIALT LE. NO S/S OF SOB OR DISTRESS NOTED. PATIENT DOESN'T WANT ANY PAIN MEDICATION FOR HIS R HAND AT THIS TIME STATED WOULD REQUEST WHEN NEEDED. CONTINUES ON ABT THERAPY AND FLUIDS. WILL CONTINUE TO MONITOR FOR ANY CHANGES.
[2021-08-28 05:04] VITALS: BP 106/51; PULSE 70; TEMP 98.2
[2021-08-28 06:14] LABS: MEAN CELL VOLUME 96 fl (80.0-100.0); MEAN CORPUSCULAR HGB CONC 32 g/dl (33.0-37.0); MEAN PLATELET VOLUME 10.6 fl (7.4-10.4); PLATELET COUNT 68 K/mm3 (130-400); RED BLOOD COUNT 2.55 M/mm3 (4.20-5.60); REDCELL DISTRIBUTION WIDTH-CV 16.8 % (11.5-14.5)
[2021-08-28 06:15] LABS: HEMATOCRIT 24.4 % (42.0-52.0); HEMOGLOBIN 7.9 g/dl (13.5-18.0); MEAN CORPUSCULAR HEMOGLOBIN 31 pg (27-31)
--- NOTE | 2021-08-28 06:25 | NUR ---
CALLED DR. BYRD IN REGARDS TO CRITICAL WBC 0.9 LEFT MESSAGE FOR CALL BACK X2 PENDING CALL.
--- NOTE | 2021-08-28 06:26 | NUR ---
PLACED PATIENT ON NEUTROPENIC PRECAUTIONS DUE TO DECREASED AND CRITICAL WBC 0.9
[2021-08-28 06:27] LABS: CALCIUM 7.7 mg/dL (8.4-10.2); CREATININE, serum 3.32 mg/dL (0.72-1.25); POTASSIUM 4.1 mmol/L (3.5-4.5)
--- NOTE | 2021-08-28 06:32 | NUR ---
SPOKE WITH DR. BYRD@ 7125 IN REGARDS TO CRITICAL WBC 0.9 STATED WOULD REVIEW AND PATIENT TO BE PLACED NEUTROPENIC PRECAUTIONS.
[2021-08-28 07:09] LABS: BAND 2 % (0-10); LYMPHOCYTE 14 % (20.0-51.0); NEUTROPHILS 82 % (42.0-75.2); PLATELET ESTIMATE DECREASED (NORMAL)
[2021-08-28 07:10] LABS: ANISOCYTOSIS 1+; HYPOCHROMIA 2+
--- NOTE | 2021-08-28 07:36 | NUR ---
PT VSS,ORIENT AND ALERTX4,NOW NEUTROPENIC, NEEDED PRECAUTION IN PLACE
[2021-08-28 07:45] VITALS: BP 91/50; PULSE 74; TEMP 98.1
[2021-08-28 11:45] VITALS: BP 101/80; PULSE 71; TEMP 97.4
[2021-08-28 16:00] VITALS: BP 120/57; PULSE 65; TEMP 98
--- NOTE | 2021-08-28 19:43 | NUR ---
PT ORIENT AND ALERT X4, VSS, RAISED C/O PAIN AND NAUSEA MEDS GIVEN, CT WITH IVF, INSULINE HELD ALL DAY, FOR PALLIATIVE CONSULT TOMORROW, CARLOS AT PALLIATIVE NOTIFIED.
[2021-08-28 20:46] VITALS: BP 133/58; PULSE 65; TEMP 97.3
[2021-08-28 23:56] VITALS: BP 101/65; PULSE 65; TEMP 98.5
[2021-08-29 04:17] VITALS: BP 105/53; PULSE 79; TEMP 98.5
--- NOTE | 2021-08-29 05:45 | NUR ---
RESTED THROUGH THE NIGHT WITHOUT INCIDENT. AM MEDS GIVEN. AM LABS DRAWN FROM PICC. PT IS VERY WEAK ATTEMPT TO GET UP AFTER PT ACCIDENTLY WET THE BED WITH NO SUCCESS. PT CAN NOT STAND ON OWN OR BEAR ANY WEIGHT. UNSAFE FOR MANUFACTURERS AGENT, MYSELF AND PATIENT. COMPLETE LINEN CHANGE, GOWN IN BED. CALL LIGHT WI REACH. NEEDS MET.
[2021-08-29 06:43] LABS: MEAN CELL VOLUME 95 fl (80.0-100.0); MEAN CORPUSCULAR HGB CONC 33 g/dl (33.0-37.0); MEAN PLATELET VOLUME 12.9 fl (7.4-10.4); RED BLOOD COUNT 2.45 M/mm3 (4.20-5.60); REDCELL DISTRIBUTION WIDTH-CV 16.4 % (11.5-14.5)
[2021-08-29 07:03] LABS: HEMATOCRIT 23.2 % (42.0-52.0); HEMOGLOBIN 7.6 g/dl (13.5-18.0); MEAN CORPUSCULAR HEMOGLOBIN 31 pg (27-31)
[2021-08-29 07:04] LABS: PLATELET COUNT 48 K/mm3 (130-400)
[2021-08-29 07:09] LABS: CALCIUM 7.6 mg/dL (8.4-10.2); CREATININE, serum 3.36 mg/dL (0.72-1.25)
[2021-08-29 07:10] VITALS: BP 119/54; PULSE 79; TEMP 98.1
[2021-08-29 07:39] LABS: POTASSIUM 4.5 mmol/L (3.5-4.5)
[2021-08-29 08:00] VITALS: BP 114/47; PULSE 71; TEMP 98.4
--- NOTE | 2021-08-29 08:08 | NUR ---
Patient sitting up in bed, A&Ox4. VSS. IV CDI. Reports being tired and "out of it" Waiting for to be at the bedside. Reports pain all over the body. Refusing to eat, no appetite. Call light within reach. Bed alarm on
[2021-08-29 11:00] VITALS: BP 122/50; PULSE 68; TEMP 97.7
--- NOTE | 2021-08-29 11:07 | NUR ---
Met with patient and his at bedside. She states that they have been talking for a while about him not wanting to come back to or in the hospital. expressed that she has seen a significant decline the last week. We explicitly discussed hospice at home and patient requested time to talk with his about it. She states that if they did that, they would need a hospital bed and assistance getting him home. Provided options for hospice agencies and how they work equipment and possible EMS transfer home. Also provided my contact information and plan to check back later.
[2021-08-29 11:10] LABS: BAND 9 % (0-10); LYMPHOCYTE 13 % (20.0-51.0); NEUTROPHILS 75 % (42.0-75.2); PLATELET ESTIMATE DECREASED (NORMAL)
--- NOTE | 2021-08-29 12:06 | NUR ---
Patient's had more questions about hospice so we sat and discussed things. She has the Medicare.org list of hospice agencies and aske what she would need to do if they decided to get the ball rolling. Informed her that I or SW would just need her agency preference then decide with hospitalist care team when to discharge. She thanked me and said they will process everything and let us know.
--- NOTE | 2021-08-29 12:49 | NUR ---
A palliative care consult was ordered. The patient and his are considering hospice at home. Sivan, palliative care RN, provided the patient's with Medicare.gov's list of hospice agencies in the [facility]. The patient and family are having discussions now.
--- NOTE | 2021-08-29 15:37 | NUR ---
waste water worker provided Geovany with [facility] an update on patient's care plans.
[2021-08-29 15:53] VITALS: BP 125/59; PULSE 66; TEMP 98.2
--- NOTE | 2021-08-29 17:36 | NUR ---
at the bedside throughout the whole shift. Patient A&Ox4. VSS. IV CDI, fluids infusing. Denies pain, reports discomfort from laying in bed. Refusing to take some PO intake. Minimal PO intake with wifes assistance. Nursing staff assisting with positioning patient for comfort. Call light within reach. Bed alarm on
--- NOTE | 2021-08-29 19:00 | NUR ---
Report rcvd. Patient in bed and at bedside. Denies any discomfort aside from the bed being uncomfortable. Per report the patient has been refusing medications. Will attempt night time medications this evening. No other concerns at this time.
[2021-08-29 19:46] VITALS: BP 138/54; PULSE 62; TEMP 98.3
--- NOTE | 2021-08-29 20:00 | NUR ---
Assessment completed. The patient has extensive skin condition issues. BLE edema +3, BUE edema +1. The patient has a reddened bottom, dependent scrotal swelling. There is discoloration of the bilateral shins/calf area circumventing the entire germain/calf. The patient states "I fell the other night and it took a lot to get me up and back in bed, I do not want to get out of bed again." This RN looked back to check for post fall documentation and did not see anything noted regarding a fall. It should be noted that the patient does have an abrasion on the right side of his trunk that appears to be from moisture breakdown or from the pull of a gait belt. It is open, however the patient denies it being painful. The patient does have severe ecchymosis of the right pointer finger with slight ecchymosis to the middle finger. The right pointer finger has what appears to be a cut between the first and second knuckle. The patient states that it is from floss being wrapped around his fingers for about a minute and a half. There is blood flow to the fingers, but at sight looks necrotic. The patient does state that there is significant pain in that finger if it is touched. No other concerns at this time. Will continue to monitor.
[2021-08-30 00:54] VITALS: BP 124/56; PULSE 62; TEMP 97.7
[2021-08-30 04:16] VITALS: BP 124/51; PULSE 62; TEMP 98
--- NOTE | 2021-08-30 05:00 | NUR ---
The patient called to be placed on the bed hoyos, he refuses to get out of bed to sit on the bedside commode, still states that he fell even though we haven't had any documented proof that he fell. Unsure of if or how the patient fell.
[2021-08-30 06:07] LABS: MEAN CELL VOLUME 94 fl (80.0-100.0); MEAN CORPUSCULAR HGB CONC 33 g/dl (33.0-37.0); MEAN PLATELET VOLUME 12.4 fl (7.4-10.4); PLATELET COUNT 51 K/mm3 (130-400); RED BLOOD COUNT 2.14 M/mm3 (4.20-5.60); REDCELL DISTRIBUTION WIDTH-CV 16.7 % (11.5-14.5)
[2021-08-30 06:25] LABS: CALCIUM 7.3 mg/dL (8.4-10.2); CREATININE, serum 4.41 mg/dL (0.72-1.25); POTASSIUM 4.6 mmol/L (3.5-4.5)
--- NOTE | 2021-08-30 07:05 | NUR ---
PT HAD UNEVENTFUL NIGHT, DENIES PAIN, HAS REFUSED MOST NURSING CARES. NO FURTHER CONCERNS. REPORT GIVEN TO MUNIRA SERRANO.
[2021-08-30 07:12] LABS: HEMATOCRIT 20.1 % (42.0-52.0); HEMOGLOBIN 6.6 g/dl (13.5-18.0); MEAN CORPUSCULAR HEMOGLOBIN 31 pg (27-31)
[2021-08-30 07:32] VITALS: BP 105/44; PULSE 57; TEMP 97.9
[2021-08-30 08:18] LABS: BAND 3 % (0-10); EOSINOPHIL 2 % (0-4); LYMPHOCYTE 34 % (20.0-51.0); NEUTROPHILS 57 % (42.0-75.2); PLATELET ESTIMATE DECREASED (NORMAL)
[2021-08-30 08:19] LABS: ANISOCYTOSIS 1+
--- NOTE | 2021-08-30 08:38 | NUR ---
Received voicemail from patient's . She said they are still hesitant to move to hospice and had some more questions. Will reach out today to discuss things.
--- NOTE | 2021-08-30 08:45 | NUR ---
PT LAYING SUPINE IN BED WITH FAMILY AT BED SIDE. PT STATES THAT HE DOES NOT WANT TO EAT ANYTHING. PT STATES HE ONLY WANTS TO TAKE A FEW PILLS. "I DON'T NEED ANYTHING. YOU CAN JUST LEAVE ME ALONE." FAMILY AND PT STATES NO NEEDS/CONCERNS AT THIS TIME. CALL LIGHT IS WITHIN REACH.
--- NOTE | 2021-08-30 09:31 | NUR ---
Attended rounds. Patient and his have decided to move to comfort care and DNR. Patient would like to go to [facility]. Call made to [facility]; after they receive patient information, they will give us an admission date and time. Secure email sent with patient demographics and progess notes to Andrew at [facility]
--- NOTE | 2021-08-30 10:34 | NUR ---
Sivan, palliative care RN, notified that the patient and his have decided to transition to comfort care. They would like to go to the [facility]. [facility] contacted and a referral faxed to their commercial coordinator. Awaiting screen.
--- NOTE | 2021-08-30 11:57 | NUR ---
The [facility] is able to accept the patient tomorrow. They are requesting a transport time between [id number]. HA met with the patient and his , Matilda, to follow up. The patient is sleeping. Matilda is in agreement to the plan. She confirms she would like to use EMS for transportation. HA presented and read the IM form and the EMS Consent form outloud to Matilda. Matilda verbalized understanding and signed both forms. HA provided her with a copy of the IM. *Discharge plan: hosp[facility] [place] Sunday*
[2021-08-30 12:01] VITALS: BP 120/51; PULSE 59; TEMP 98.1
[2021-08-30 13:45] VITALS: BP 117/52; PULSE 60; TEMP 98.1
--- NOTE | 2021-08-30 15:43 | NUR ---
SPOKE TO PT , SHE STATES THAT SHE WOULD LIKE TO SPEND THE NIGHT WITH THE PT NICKI. CONTACTED LAW OFFICE ASSISTANT, IBIS AND SHE STATES THAT THE CAN STAY LONG THE PT IS COMFORT CARE. SPOKE TO MUNIRA CONRAD AND SHE STATES PT IS COMFORT CARE. SPOKE TO VICTOR MANUEL ROLDAN AND SHE STATES THAT SHE WILL TALK TO AND MAKE SURE THAT ALL THE COMFORT CARE ORDERS ARE PUT IN AND IF ANY OTHER ORDERS NEED TO BE ADJUSTED.
[2021-08-30 16:00] VITALS: BP 117/52; PULSE 60; TEMP 98.1
--- NOTE | 2021-08-30 16:30 | NUR ---
THE PATIENT FAMILY IS REQUESTING PAIN MEDICATION FOR THE PATIENT. , SISTER AND [id number]-RD-ANC AT BEDSIDE.
--- NOTE | 2021-08-31 06:05 | NUR ---
PATIENT HAS HAD UNEVENTFUL NIGHT. REQUEST FOR ATIVAN AND MORPHINE JUST TWICE. THE PATIENT SEEMS TO BE UNCOMFORTABLE, BUT DOES NOT WANT MEDICATIONS OFTEN. THE FAMILY AND THE PATIENT HAVE REQUESTED IF THEY CAN KEEP THE PICC DUE TO THE PATIENT'S NAUSEA AND VOMITTING AND BEING UNABLE TO TAKE PO. THIS RN STATED THAT WE CAN CERTAINLY ASK, THAT IT HASN'T BEEN UNHEARD OF. NO OTHER CONCERNS. WILL REPORT TO DAY SHIFT RN.
[2021-08-31] MEDS ORDERED: PHENERGAN 25 TA25 MG PO (09:44)
[2021-08-31] MEDS ORDERED: ZOFRAN 4MG T4 MG/TAB PO (09:44)
[2021-08-31] MEDS ORDERED: TRANSDERM-0.5 MG/21 TD (09:45)
[2021-08-31] MEDS ORDERED: DULCOLAX S10 MG/SUPP RC (09:45)
[2021-08-31] MEDS ORDERED: SENEXON-S 50-81 EACH PO (09:46)
[2021-08-31] MEDS ORDERED: FLEET ENEM1 BOT/133 RC (09:46)
[2021-08-31] MEDS ORDERED: RT ALBUTER2.5 MG/0.5 IH (09:47)
[2021-08-31] MEDS ORDERED: ATIVAN 1MG T1 MG/TAB PO (09:49)
[2021-08-31] MEDS ORDERED: ROXANOL 20MG20 MG/ML PO (09:49)
--- NOTE | 2021-08-31 09:57 | NUR ---
The patient is to discharge today, 08/31, to the [facility]. Transportation was scheduled at 1300, via [facility]. SW informed the patient's and RN of the time. No additional needs at this time.
--- NOTE | 2021-08-31 10:00 | NUR ---
Pt going okay. Refusing medications. Not doing vital signs at this time per comfort care. Pt aware that he is going to be leaving today. Pt stated he is okay with no getting dressed and just getting covered with sheet, pt requested this. All questions answered at this time. Informed family that the PICC line would be removed by IV services. Pt denies pain or the need for pain medications at this time.
--- NOTE | 2021-08-31 13:07 | NUR ---
Report has been called to [facility]. Pt just left via EMS. Family present in the room during transfer.
== END 2021-08-31 13:11 | disposition hospice, home (50) | DRG 682 ==
LOC: COL.ER 00:36 → MEDICAL 03:31
PROVIDERS: Emergency Medicine; Student in an Organized Health Care Education/Training Program; ADMIT Internal Medicine
DX: N17.9 Acute kidney failure, unspecified (principal); B37.6 Candidal endocarditis; G72.81 Critical illness myopathy; E87.1 Hypo-osmolality and hyponatremia; D61.818 Other pancytopenia; Z51.5 Encounter for palliative care; I48.91 Unspecified atrial fibrillation; D64.9 Anemia, unspecified; E11.51 Type 2 diabetes mellitus with diabetic peripheral angiopathy without gangrene; Z20.822 Contact with and (suspected) exposure to COVID-19; R62.7 Adult failure to thrive; S61.200A Unspecified open wound of right index finger without damage to nail, initial encounter; E86.0 Dehydration; D72.819 Decreased white blood cell count, unspecified; I50.9 Heart failure, unspecified; E11.22 Type 2 diabetes mellitus with diabetic chronic kidney disease; N18.30 Chronic kidney disease, stage 3 unspecified; I25.2 Old myocardial infarction; Z79.4 Long term (current) use of insulin; Z79.82 Long term (current) use of aspirin; Z98.49 Cataract extraction status, unspecified eye; Z87.442 Personal history of urinary calculi; Z87.19 Personal history of other diseases of the digestive system; Z86.718 Personal history of other venous thrombosis and embolism; Z95.4 Presence of other heart-valve replacement; Z95.5 Presence of coronary angioplasty implant and graft; Z72.89 Other problems related to lifestyle; Z23 Encounter for immunization; Z68.35 Body mass index [BMI] 35.0-35.9, adult; Z98.42 Cataract extraction status, left eye; Z98.41 Cataract extraction status, right eye
CPT/HCPCS: 99223-AI; 99232-AI; 99233-AI; J0330; J1815; J2060; J2270; J2405; J2550; J7030; J7120